=== PATIENT | female | born 1975 | race Caucasian/White ===

== ENCOUNTER 2019-09-02 08:15 | Emergency (ER) | payer OTHER ==
[~2019-09-02] VITALS: Ht 154.9 cm; Wt 104.1 kg
[2019-09-02] MEDS ORDERED: LIPI10TA PO (08:21)
[2019-09-02] MEDS ORDERED: ZOLO100T PO (08:21)
[2019-09-02] MEDS ORDERED: MOBI4TAB PO (08:21)
[2019-09-02] MEDS ORDERED: PEPC1TAB5 PO (08:21)
[2019-09-02] MEDS ORDERED: MIRE1IUD IU (08:23)
[2019-09-02] MEDS ORDERED: PHENAZOPYRIDINE 100 MG TAB PO ONE (09:15)
[2019-09-02] MEDS ORDERED: BACT800T5 PO ×2 (10:13→10:36)
[2019-09-02] MEDS ORDERED: PYRI1TAB5 PO ×2 (10:19→10:36)
[2019-09-02 10:30] VITALS: BP 126/77
== END 2019-09-02 10:37 | disposition home or self-care (01) ==
LOC: M ED 08:15
DX: N39.0 Urinary tract infection, site not specified (principal); Z87.442 Personal history of urinary calculi; Z79.84 Long term (current) use of oral hypoglycemic drugs; Z79.899 Other long term (current) drug therapy

== ENCOUNTER → 2019-12-02 | Outpatient (REF) | payer OTHER ==
[~2019-12-02] MED LIST: BACT800T5 PO; LIPI10TA PO; MIRE1IUD IU; MOBI4TAB PO; PEPC1TAB5 PO; PYRI1TAB5 PO; ZOLO100T PO
== END ==
LOC: M SFHCLERA 16:20
PROVIDERS: ATTEND Nurse Practitioner Family
DX: R30.0 Dysuria (principal)
CPT/HCPCS: 81002; 87088; 87186; G0463

== ENCOUNTER → 2019-12-12 | Outpatient (REF) | payer OTHER | LOC: M SFHCLERA 16:39 | PROVIDERS: ATTEND Physician Assistant | DX: R30.0 Dysuria (principal) | CPT/HCPCS: 81002; 81025; 87088; 87186; G0463 ==

== ENCOUNTER 2020-01-27 01:25 | Inpatient (IN) | payer OTHER ==
[2020-01-27] VITALS (7 sets, daily range): BP systolic 130–160; BP diastolic 84–93; O2SAT 90
[~2020-01-27] VITALS: Ht 154.9 cm; Wt 105.9 kg
[2020-01-27] MEDS ORDERED: NS 1,000 ML IV ONE ×3 (02:00→07:45)
[2020-01-27] MEDS ORDERED: ONDANSETRON 4MG/2ML VIAL IV ONE (02:00)
[2020-01-27] MEDS ORDERED: MORPHINE 4 MG/ML 1ML VIAL/SYRINGE (J2270) IV ONE ×2 (02:00→06:45)
[2020-01-27 02:24] LABS: BASO # 0.1 10^3/uL (0.0-0.2); BASO % 0.4 % (0.0-1.0); BILIRUBIN, URINE MANUAL OBSCURED (NEGATIVE); EOS # 0.2 10^3/uL (0.0-0.5); EOS % 1.7 % (0.0-3.0); GLUCOSE, URINE (UA) MANUAL OBSCURED mg/dL (NEGATIVE); HEMATOCRIT 43.9 % (36.0-47.0); HEMOGLOBIN 13.8 g/dl (12.0-15.5); KETONE, URINE MANUAL OBSCURED mg/dL (NEGATIVE); LYMPH # 2.3 10^3/uL (1.5-5.0); LYMPH % 16.3 % (24.0-44.0); MEAN CORPUSCULAR HEMOGLOBIN 29.2 pg (27.0-33.0); MEAN CORPUSCULAR HGB CONC 31.4 g/dl (32.0-36.5); MEAN CORPUSCULAR VOLUME 92.8 fl (80.0-96.0); MONO # 0.9 10^3/uL (0.0-0.8); MONO % 6.5 % (0.0-5.0); NEUTROPHILS # 10.4 10^3/uL (1.5-8.5); NEUTROPHILS % 74.6 % (36.0-66.0); PLATELET COUNT, AUTOMATED 340 10^3/uL (150-450); RED BLOOD COUNT 4.73 10^6/uL (4.00-5.40); UROBILINOGEN, URINE MANUAL OBSCURED mg/dl (NORMAL); WHITE BLOOD COUNT 13.9 10^3/uL (4.0-10.0)
[2020-01-27 02:36] LABS: BACTERIA, URINE SMALL AMOUNT; HYALINE CAST, URINE NONE SEEN /lpf (0-1); SQUAMOUS EPITHELIAL CELL URINE SMALL AMOUNT /hpf (SMALL AMT)
[2020-01-27 03:01] LABS: HCG, SERUM QUALITATIVE NEGATIVE (NEGATIVE)
[2020-01-27 03:02] LABS: ALBUMIN 3.8 GM/DL (3.2-5.2); ALT/SGPT 22 U/L (12-78); BILIRUBIN,DIRECT 0.1 MG/DL (0.0-0.2); BILIRUBIN,TOTAL 0.6 MG/DL (0.2-1.0); BLOOD UREA NITROGEN 14 MG/DL (7-18); CALCIUM LEVEL 8.7 MG/DL (8.5-10.1); CARBON DIOXIDE LEVEL 18 MEQ/L (21-32); CHLORIDE LEVEL 114 MEQ/L (98-107); CREATININE FOR GFR 1.69 MG/DL (0.55-1.30); GLOMERULAR FILTRATION RATE 35.2 (>58); GLUCOSE, FASTING 81 MG/DL (70-100); LIPASE 127 U/L (73-393); POTASSIUM SERUM 3.8 MEQ/L (3.5-5.1); SODIUM LEVEL 140 MEQ/L (136-145)
--- NOTE | 2020-01-27 03:32 | REPVR ---
PROCEDURE INFORMATION: Exam: CT Abdomen And Pelvis Without Contrast Exam date and time: 01/27/2020 2:00 AM Age: 44 years old Clinical indication: Abdominal pain; Flank; Right; Additional info: R flank pain TECHNIQUE: Imaging protocol: Computed tomography of the abdomen and pelvis without contrast. Radiation optimization: All CT scans at this facility use at least one of these dose optimization techniques: automated exposure control; mA and/or kV adjustment per patient size (includes targeted exams where dose is matched to clinical indication); or iterative reconstruction. COMPARISON: No relevant prior studies available. FINDINGS: Liver: Normal. No mass. Gallbladder and bile ducts: Distended gallbladder with subtle adjacent infiltration. Pancreas: Normal. No ductal dilation. Spleen: Normal. No splenomegaly. Adrenals: Normal. No mass. Kidneys and ureters: [id number] left-sided hydroureteronephrosis secondary to 5 mm by 4 mm calculus at the left UVJ. There is right renal cortical scarring. Stomach and bowel: There is gastric postoperative change. Appendix: No evidence of appendicitis. Intraperitoneal space: Unremarkable. No free air. No significant fluid collection. Vasculature: Unremarkable. No abdominal aortic aneurysm. Lymph nodes: Unremarkable. No enlarged lymph nodes. Bladder: Unremarkable as visualized. Reproductive: IUD within the uterus. Bones/joints: There are lumbar spine degenerative changes greatest at L5-S1. Soft tissues: Unremarkable. IMPRESSION: 1. Zhfp-ja-[id number] left-sided hydroureteronephrosis secondary to 5 mm by 4 mm calculus at the left UVJ. 2. Distended gallbladder with subtle adjacent infiltration, ultrasound as clinically warranted. Electronically signed by: Saud Guzman On 01/27/2020 03:31:59 AM
[2020-01-27 04:02] LABS: ABG BASE EXCESS -9.1 (-2.0-2.0); ABG HCO3 16.4 MEQ/L (22.0-26.0); ABG O2 SATURATION 98.1 % (95.0-99.0); ABG PARTIAL PRESSURE CO2 34.4 mmHg (35.0-45.0); ABG PARTIAL PRESSURE O2 126.7 mmHg (75.0-100.0); ABG STANDARD HCO3 17.2 MEQ/L (22.0-26.0); ABG TOTAL CO2 17.5 MEQ/L (22.0-29.0); ABG pH (ARTERIAL) 7.296 UNITS (7.350-7.450)
[2020-01-27] MEDS ORDERED: AZO-95TA3 PO (04:36)
[2020-01-27] MEDS ORDERED: PHENAZOPYRIDINE 100 MG TAB PO ONE ×2 (04:45→18:15)
--- NOTE | 2020-01-27 05:01 | REPVR ---
PROCEDURE INFORMATION: Exam: CT Chest Without Contrast Exam date and time: 01/27/2020 4:35 AM Age: 44 years old Clinical indication: Other: Hypoxia TECHNIQUE: Imaging protocol: Computed tomography of the chest without contrast. 3D rendering: MIP and/or 3D reconstructed images were created by the technologist. Radiation optimization: All CT scans at this facility use at least one of these dose optimization techniques: automated exposure control; mA and/or kV adjustment per patient size (includes targeted exams where dose is matched to clinical indication); or iterative reconstruction. COMPARISON: No relevant prior studies available. FINDINGS: Lungs: Unremarkable. No consolidation. No masses. Pleural space: Unremarkable. No pneumothorax. No pleural effusion. Heart: Unremarkable. No cardiomegaly. No pericardial effusion. Aorta: Unremarkable. No aortic aneurysm. Lymph nodes: Unremarkable. No enlarged lymph nodes. Bones/joints: Unremarkable. No acute fracture. Soft tissues: Unremarkable. IMPRESSION: No acute findings. Electronically signed by: Saud Guzman On 01/27/2020 05:00:32 AM
[2020-01-27 05:31] LABS: CK-MB VALUE MASS 1.5 NG/ML (<3.6); CPK CREATINE PHOSPHOKINASE 84 U/L (26-192); MB/CK RELATIVE INDEX 1.79 (< OR =4); TROPONIN I < 0.02 NG/ML (< 0.10)
[2020-01-27 06:02] LABS: VENOUS BASE EXCESS -11.5 (-2.0-2.0); VENOUS HCO3 16.2 MEQ/L (23.0-27.0); VENOUS O2 SATURATION 94.3 % (60.0-80.0); VENOUS PARTIAL PRESSURE CO2 43.4 mmHg (38.0-50.0); VENOUS PARTIAL PRESSURE O2 84.4 mmHg (30.0-50.0); VENOUS PH 7.191 UNITS (7.330-7.430); VENOUS STANDARD HCO3 15.4 MEQ/L; VENOUS TOTAL CO2 17.6 MEQ/L (24.0-28.0)
[2020-01-27] MEDS ORDERED: NS 1,000 ML IV SCH ×2 (06:07→08:00)
[2020-01-27 06:25] LABS: SALICYLATE LEVEL < 1.7 MG/DL (5.0-30.0)
[2020-01-27] MEDS ORDERED: HYDROMORPHONE HCL 0.5 MG/ 0.5 ML SYRINGE (J1170 PER 1) As Ordered ONE (07:05)
[2020-01-27] MEDS ORDERED: HYDROMORPHONE HCL 0.5 MG/ 0.5 ML SYRINGE (J1170 PER 1) IV ONE ×2 (07:15→08:45)
[2020-01-27] MEDS ORDERED: HYDROmorphone HCL 2 MG/ML 1ML VIAL (J1170) IV PRN (08:00)
[2020-01-27] MEDS ORDERED: HYDROMORPHONE HCL 0.5 MG/ 0.5 ML SYRINGE (J1170 PER 1) IV PRN ×6 (08:00→21:15)
--- NOTE | 2020-01-27 08:11 | ECGEPIP ---
[facility] - ED Test Date: 2020-01-27 Pat Name: IMANI DINH Department: Room: - Gender: Female [employer] Sorter: ALFONZO : 1975 Requested By: GAYLE Metcalf Order Number: [id number] Reading MD: Ramo Richey Measurements Intervals [place] Rate: 98 P: 56 PA: 150 QRS: 58 QRSD: 97 T: 28 QT: 384 QTc: 492 Interpretive Statements SINUS RHYTHM NO PRIORS FOR COMPARISON Electronically Signed on 01-27-2020 8:11:05 EDT by Ramo Richey
--- NOTE | 2020-01-27 08:57 | REP ---
Chest x-ray: Two views. History: Hypoxia. No comparison chest x-ray. Findings: Monitoring electrodes are seen overlying the chest. Lungs are well inflated and clear. The pleural angles are sharp. Heart size is normal. Pulmonary vasculature is not increased. There are mild degenerative changes in the thoracic spine. No acute bony abnormality is seen. Impression: No active disease. Electronically Signed by Greg Clayton MD 01/27/2020 08:49 A
[2020-01-27] MEDS: ONDANSETRON 4MG/2ML VIAL IV PRN ×5 (09:15→22:02)
--- NOTE | 2020-01-27 11:18 | REP ---
RIGHT UPPER QUADRANT ULTRASOUND: Real-time sonographic evaluation of the right upper quadrant performed. Gallbladder is moderately distended and contains gallstones. There is no gallbladder wall thickening or pericholecystic fluid. There is no intrahepatic or extrahepatic biliary dilatation, common bile duct measuring 3 mm. Liver demonstrates no mass. Pancreas is not optimally seen due to overlying bowel gas but demonstrates no gross abnormality. Right kidney demonstrates no hydronephrosis with normal size 12 cm in length. IMPRESSION: Moderately distended gallbladder containing gallstones. No gallbladder wall thickening or pericholecystic fluid or biliary dilatation. Electronically Signed by Zion Person MD 01/27/2020 12:20 P
--- NOTE | 2020-01-27 12:04 | REP ---
V/Q SCAN: Following the intravenous administration of 5.4 mCi technetium 99m tagged MAA and the inhalation of 1 mCi technetium 99m DTPA aerosol, multiple images of the lungs are obtained in various projections. No significant perfusion defect is seen bilaterally. There are no areas of V/Q mismatch. There is no scintigraphic evidence of pulmonary embolism. IMPRESSION: No scintigraphic evidence of pulmonary embolism. Electronically Signed by Zion Person MD 01/27/2020 12:22 P
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
[2020-01-27] MEDS: LACTOBACILLUS ACIDOPHILUS CAP (BACID) PO SCH ×2 (13:10→18:20)
[2020-01-27] MEDS: SERTRALINE 100 MG TAB PO SCH (13:11)
[2020-01-27] MEDS: FAMOTIDINE 20 MG TAB PO SCH (13:11)
[2020-01-27] MEDS: cefTRIAXone SOD 2 GM in D5W MINI-BAG PLUS 50 ML IV SCH (13:12)
[2020-01-27] MEDS ORDERED: NS 2,000 ML IV ONE (13:45)
[2020-01-27 14:38] LABS: CALCIUM LEVEL 7.5 MG/DL (8.5-10.1); CREATININE FOR GFR 2.7 MG/DL (0.55-1.30); GLOMERULAR FILTRATION RATE 20.5 (>58); POTASSIUM SERUM 4.1 MEQ/L (3.5-5.1)
[2020-01-27] MEDS: HYDROMORPHONE HCL 0.5 MG/ 0.5 ML SYRINGE (J1170 PER 1) IV PRN (18:21)
--- NOTE | 2020-01-27 19:08 | IPNPDOC ---
Date Seen The patient was seen on 01/27/20. Progress Note Medical clearance: Acute Kidney Injury with Metabolic Acidosis due to Obstructing stone. -pt is medically optimized. She has no history of CAD, KS, CHF, and has no acute cardiac ischemic symptoms. She has been worked up for possible PE due to hypoxia and tachycardia, but had a negative VQ scan. CT chest reviewed by community nurse Dr. Srinivasan earlier this morning, and suggested incentive spirometry for atelectasis, and possible undiagnosed KIM or Obesity hypoventilation syndrome. -NPO. Dr. Malhotra to do ureteroscopy with lithotripsy stent. IVFluids. Tillman. -Pt gives consent. VS, I&O, 24H, Fishbone Vital Signs/I&O Vital Signs Date Time Temp Pulse Resp B/P (MAP) Pulse Ox O2 Delivery O2 Flow Rate FiO2 01/27/20 18:31 21 01/27/20 14:00 98.7 87 160/90 (113) 100 Room Air Laboratory Data 24H LABS Laboratory Tests 2 01/27/20 02:12: Immature Granulocyte % (Auto) 0.5, Neutrophils (%) (Auto) 74.6H, Lymphocytes (%) (Auto) 16.3L, Monocytes (%) (Auto) 6.5H, Eosinophils (%) (Auto) 1.7, Basophils (%) (Auto) 0.4, Neutrophils # (Auto) 10.4H, Lymphocytes # (Auto) 2.3, Monocytes # (Auto) 0.9H, Eosinophils # (Auto) 0.2, Basophils # (Auto) 0.1, Nucleated Red Blood Cells % (auto) 0.1H, Urine Color (ROHINI) ORANGEH, Urine Appearance (ROHINI) TURBIDH, Urine pH (ROHINI) OBSCUREDH, Urine Specific [place] (ROHINI) 1.020, Bedside Urine Glucose (UA) OBSCUREDH, Bedside Urine Ketones (LAB) OBSCUREDH, Bedside Urine Blood POSITIVEH, Bedside Urine Nitrite (LAB) OBSCUREDH, Bedside Urine Bili hurtado (LAB) OBSCUREDH, Bedside Urine Urobilinogen (LAB) OBSCUREDH, Bedside Urine Leukocyte Esterase (L OBSCUREDH, Urine Sediment Examination PERFORMED, Urine RBC 3-5H, Urine WBC 3-5H, Urine Squamous Epithelial Cells SMALL AMOUNT, Urine Bacteria SMALL AMOUNTH, Urine Hyaline Casts NONE SEEN, Anion Gap 8, Glomerular Filtration Rate 35.2L, Calcium Level 8.7, Total Bilirubin 0.6, Direct Bilirubin 0.1, Aspartate Amino Transf (AST/SGOT) 18, Alanine Aminotransferase (ALT/SGPT) 22, Alkaline Phosphatase 74, Total Creatine Kinase 84, Creatine Kinase MB 1.5, Creatine Kinase MB Relative Index 1.79, Troponin I < 0.02, Total Protein 7.0, Albumin 3.8, Albumin/Globulin Ratio 1.2, Lipase 127, Human Chorionic Gonadotropin, Qual NEGATIVE, Salicylates Level < 1.7L 01/27/20 03:52: Blood Gas Bicarbonate Standard 17.2L, Arterial Blood pH 7.296L, Arterial Blood Partial Pressure CO2 34.4L, Arterial Blood Partial Pressure O2 126.7H, Arterial Blood Total CO2 17.5L, Arterial Blood HCO3 16.4L, Arterial Blood Base Excess - 9.1L, Arterial Blood Oxygen Saturation 98.1 01/27/20 05:42: Blood Gas Bicarbonate Standard 15.4, Venous Blood pH 7.191L, Venous Blood Partial Pressure CO2 43.4, Venous Blood Partial Pressure O2 84.4H, Venous Blood Total Carbon Dioxide 17.6L, Venous Blood HCO3 16.2L, Venous Blood Oxygen Saturation 94.3H, Venous Blood Base Excess -11.5L 01/27/20 06:14: Lactic Acid Level 0.7 01/27/20 13:53: Anion Gap 10, Glomerular Filtration Rate 20.5L, Calcium Level 7.5L CBC/BMP Laboratory Tests 01/27/20 02:12 01/27/20 13:53 Microbiology Microbiology 01/27/20 Urine Culture, Received Pending JANNETTE ATKINS MD January 27, 2020 19:08
[2020-01-27] MEDS ORDERED: ISOVUE-300 61% 50ML VIAL As Ordered ONE (19:35)
[2020-01-27] MEDS ORDERED: MIDAZOLAM INJ 2MG/2ML VIAL (J2250 PER 1MG) As Ordered ONE (19:47)
[2020-01-27] MEDS ORDERED: LIDOCAINE 2% 100MG/5ML SDV (FOR ANES.) As Ordered ONE (19:59)
[2020-01-27] MEDS ORDERED: BUPIVACAINE/DEXTROSE 0.75% 2 ML AMP As Ordered ONE (19:59)
[2020-01-27] MEDS ORDERED: propofoL 200 MG/20 ML VIAL As Ordered ONE (19:59)
[2020-01-27] MEDS ORDERED: fentaNYL 100 MCG/2 ML INJECTION (J3010) As Ordered ONE (20:03)
--- NOTE | 2020-01-27 20:29 | SMCUROLCON ---
Urology Consultation General Date of Consultation 01/27/20 Reason For Consultation This patient is seen for Acute Kidney Injury,Metabolic Acidosis,Ureterolith. History of Present Illness This is a 44 y/o F w/ a PMH significant for kidney stones (had an ESWL in the past), HL, and GERD, admitted to the hospital earlier today for TANYA 2/2 an obstructing 5mm L UVJ stone. The patient notes that she was having urinary frequency, dysuria, and L flank pain, as well as n/v prior to coming to the hospital. She notes that she has continued to have nausea and vomiting since admission as well as dysuria and flank pain. Her Cr on admission was 1.6 (baseline unknown), and when rechecked this afternoon, it went up to 2.7. Past Medical History Medical History see HPI Surgical Hstory ESWL Gastric bypass Back surgery x2 Medications Current Medications Current Medications Medications (Trade) Dose Ordered Sig/[place] Route PRN Reason Start Time Stop Time Status Last Admin Dose Admin Atorvastatin Calcium (Lipitor) 10 mg QHS PO 01/27/20 21:00 Ceftriaxone Sodium 2 gm/ Dextrose 50 ml @ 100 mls/hr Q24H IV 01/27/20 08:00 01/27/20 13:12 Famotidine (Pepcid) 20 mg DAILY PO 01/27/20 09:00 01/27/20 13:11 Home Med (Med Rec Complete!) ASDIRECTED XX 01/27/20 06:30 01/27/20 06:45 DC Hydromorphone HCl (Dilaudid) 0.2 mg Q3HP PRN IV MILD PAIN (PS 1-4) 01/27/20 08:00 01/27/20 08:32 DC Hydromorphone HCl (Dilaudid) 0.2 mg Q3HP PRN IV MILD PAIN (PS 1-4) 01/27/20 08:45 Hydromorphone HCl (Dilaudid) 0.4 mg Q3HP PRN IV MODERATE PAIN (PS 5-7) 01/27/20 08:00 01/27/20 08:32 DC Hydromorphone HCl (Dilaudid) 0.4 mg Q3HP PRN IV MODERATE PAIN (PS 5-7) 01/27/20 08:45 01/27/20 18:21 Hydromorphone HCl (Dilaudid) 0.5 mg Q3HP PRN IV MILD PAIN (PS 1-4) 01/27/20 08:00 01/27/20 08:32 DC Hydromorphone HCl (Dilaudid) 0.8 mg Q3HP PRN IV MODERATE/SEVERE PAIN (PS 5-10) 01/27/20 08:00 01/27/20 08:32 DC Hydromorphone HCl (Dilaudid) 1 mg Q3HP PRN IV MILD PAIN (PS 1-4) 01/27/20 08:00 01/27/20 08:32 DC Hydromorphone HCl (Dilaudid) 1.6 mg Q3HP PRN IV MODERATE/SEVERE PAIN (PS 5-10) 01/27/20 08:00 01/27/20 08:32 DC Lactobacillus Acidophilus (Bacid) 1 ea BIDWM PO 01/27/20 08:00 01/27/20 18:20 Ondansetron HCl (ZOFRAN INJection) 4 mg Q4HP PRN IV NAUSEA OR VOMITING 01/27/20 09:15 01/27/20 18:21 Sertraline HCl (Zoloft) 200 mg DAILY PO 01/27/20 09:00 01/27/20 13:11 Sodium Chloride 1,000 ml @ 150 mls/hr Q6H40M IV 01/27/20 06:07 01/27/20 07:56 DC 01/27/20 06:31 Sodium Chloride 1,000 ml @ 150 mls/hr Q6H40M IV 01/27/20 08:00 01/27/20 13:40 DC 01/27/20 08:12 Allergies Allergies: Coded Allergies: No Known Drug Allergies (Verified Allergy, Unknown, 09/02/19) Review of Systems Constitutional: Denies: Fever, Chills, Sweats, Weakness, Malaise Skin: Denies: Rash, Lesions, Breakdown, Nail Changes Pulmonary: Denies: Dyspnea, Cough Cardiovascular: Denies Chest Pain, Denies Palpitations Gastrointestinal: Reports: Nausea, Vomiting Genitourinary: Reports: Dysuria Musculoskeletal: Reports: Back Pain (left flank pain) Psych: Reports: Mood Normal; Denies: Anxiety, Depression Physical Examination General Exam: Alert, Cooperative, No Acute Distress Chest Exam: Normal air movement Heart Exam: Regular Rhythm Abdomen Exam: Soft Skin Exam: Nl turgor and temperature Neuro Exam: Normal Speech Psych Exam: Mental status NL, Mood NL Vital Signs/I&O Vital Signs Date Time Temp Pulse Resp B/P (MAP) Pulse Ox O2 Delivery O2 Flow Rate FiO2 01/27/20 18:31 21 01/27/20 14:00 98.7 87 160/90 (113) 100 Room Air Laboratory Data 24H Labs Laboratory Tests 2 01/27/20 02:12: Immature Granulocyte % (Auto) 0.5, Neutrophils (%) (Auto) 74.6H, Lymphocytes (%) (Auto) 16.3L, Monocytes (%) (Auto) 6.5H, Eosinophils (%) (Auto) 1.7, Basophils (%) (Auto) 0.4, Neutrophils # (Auto) 10.4H, Lymphocytes # (Auto) 2.3, Monocytes # (Auto) 0.9H, Eosinophils # (Auto) 0.2, Basophils # (Auto) 0.1, Nucleated Red Blood Cells % (auto) 0.1H, Urine Color (ROHINI) ORANGEH, Urine Appearance (ROHINI) TURBIDH, Urine pH (ROHINI) OBSCUREDH, Urine Specific [place] (ROHINI) 1.020, Bedside Urine Glucose (UA) OBSCUREDH, Bedside Urine Ketones (LAB) OBSCUREDH, Bedside Urine Blood POSITIVEH, Bedside Urine Nitrite (LAB) OBSCUREDH, Bedside Urine Bilirubin (LAB) OBSCUREDH, Bedside Urine Urobilinogen (LAB) OBSCUREDH, Bedside Urine Leukocyte Esterase (L OBSCUREDH, Urine Sediment Examination PERFORMED, Urine RBC 3-5H, Urine WBC 3-5H, Urine Squamous Epithelial Cells SMALL AMOUNT, Urine Bacteria SMALL AMOUNTH, Urine Hyaline Casts NONE SEEN, Anion Gap 8, Glomerular Filtration Rate 35.2L, Calcium Level 8.7, Total Bilirubin 0.6, Direct Bilirubin 0.1, Aspartate Amino Transf (AST/SGOT) 18, Alanine Aminotransferase (ALT/SGPT) 22, Alkaline Phosphatase 74, Total Creatine Kinase 84, Creatine Kinase MB 1.5, Creatine Kinase MB Relative Index 1.79, Troponin I < 0.02, Total Protein 7.0, Albumin 3.8, Albumin/Globulin Ratio 1.2, Lipase 127, Human Chorionic Gonadotropin, Qual NEGATIVE, Salicylates Level < 1.7L 01/27/20 03:52: Blood Gas Bicarbonate Standard 17.2L, Arterial Blood pH 7.296L, Arterial Blood Partial Pressure CO2 34.4L, Arterial Blood Partial Pressure O2 126.7H, Arterial Blood Total CO2 17.5L, Arterial Blood HCO3 16.4L, Arterial Blood Base Excess - 9.1L, Arterial Blood Oxygen Saturation 98.1 01/27/20 05:42: Blood Gas Bicarbonate Standard 15.4, Venous Blood pH 7.191L, Venous Blood Partia l Pressure CO2 43.4, Venous Blood Partial Pressure O2 84.4H, Venous Blood Total Carbon Dioxide 17.6L, Venous Blood HCO3 16.2L, Venous Blood Oxygen Saturation 94.3H, Venous Blood Base Excess -11.5L 01/27/20 06:14: Lactic Acid Level 0.7 01/27/20 13:53: Anion Gap 10, Glomerular Filtration Rate 20.5L, Calcium Level 7.5L CBC/BMP Laboratory Tests 01/27/20 02:12 01/27/20 13:53 Microbiology Microbiology 01/27/20 Urine Culture, Received Pending Assessment This is a 44 y/o F w/ TANYA 2/2 an obstructing 5mm L UVJ stone. Her Cr continues to rise and her pain and nausea have not improved. Her UA appears negative for infection. I recommend that we take her to the OR now for cystoscopy, L ureteroscopy w/ laser lithotripsy, and L ureteral stent placement. After a discussion of the risks and benefits of the procedure, informed consent was signed. Plan - plan for OR now - 2g rocephin given at 1pm - NPO - patient may resume regular diet postop ARPITA WATERS MD January 27, 2020 20:29
[2020-01-27] MEDS ORDERED: oxyCODONE 5MG TAB PO PRN (21:15)
[2020-01-27] MEDS ORDERED: fentaNYL 100 MCG/2 ML INJECTION (J3010) IV PRN (21:15)
[2020-01-27] MEDS ORDERED: LR 1,000 ML IV SCH (21:15)
[2020-01-27] MEDS ORDERED: ONDANSETRON 4MG/2ML VIAL As Ordered ONE (21:38)
[2020-01-27] MEDS: ATORVASTATIN 10 MG TAB PO SCH (23:41)
[2020-01-28] VITALS (8 sets, daily range): BP systolic 135–158; BP diastolic 70–95
[2020-01-28] MEDS: ONDANSETRON 4MG/2ML VIAL IV PRN ×3 (02:32→17:36)
[2020-01-28] MEDS: HYDROMORPHONE HCL 0.5 MG/ 0.5 ML SYRINGE (J1170 PER 1) IV PRN ×4 (02:38→23:02)
--- NOTE | 2020-01-28 06:42 | REP ---
Clinical: Ureteral stent placement. Technique: Intraoperative fluoroscopic imaging. Findings: Final image demonstrates a left ureteral stent in satisfactory position. Total fluoroscopic time 10 seconds. Impression: Satisfactory left ureteral stent placement. Electronically Signed by Prince Talbert MD 01/28/2020 06:33 A
[2020-01-28 06:49] LABS: BASO % 0.4 % (0.0-1.0); EOS # 0.2 10^3/uL (0.0-0.5); EOS % 2.5 % (0.0-3.0); HEMATOCRIT 36.7 % (36.0-47.0); LYMPH # 1.4 10^3/uL (1.5-5.0); LYMPH % 17.4 % (24.0-44.0); MEAN CORPUSCULAR HEMOGLOBIN 30.1 pg (27.0-33.0); MEAN CORPUSCULAR VOLUME 100.3 fl (80.0-96.0); MONO # 0.6 10^3/uL (0.0-0.8); MONO % 7.5 % (0.0-5.0); NEUTROPHILS # 5.9 10^3/uL (1.5-8.5); NEUTROPHILS % 71.5 % (36.0-66.0); PLATELET COUNT, AUTOMATED 237 10^3/uL (150-450); RED BLOOD COUNT 3.66 10^6/uL (4.00-5.40); WHITE BLOOD COUNT 8.3 10^3/uL (4.0-10.0)
[2020-01-28 07:11] LABS: HEMOGLOBIN A1c 4.1 %
[2020-01-28 07:41] LABS: CALCIUM LEVEL 7.6 MG/DL (8.5-10.1); CHOLESTEROL RISK RATIO 5.333 (<5); CREATININE FOR GFR 4.08 MG/DL (0.55-1.30); GLOMERULAR FILTRATION RATE 12.7 (>58); POTASSIUM SERUM 5.3 MEQ/L (3.5-5.1); THYROID STIMULATING HORMONE 1.68 uIU/ML (0.358-3.740)
[2020-01-28] MEDS: LACTOBACILLUS ACIDOPHILUS CAP (BACID) PO SCH ×2 (08:28→16:54)
[2020-01-28] MEDS: SERTRALINE 100 MG TAB PO SCH (08:28)
[2020-01-28] MEDS: cefTRIAXone SOD 2 GM in D5W MINI-BAG PLUS 50 ML IV SCH (08:28)
[2020-01-28] MEDS: FAMOTIDINE 20 MG TAB PO SCH (08:31)
[2020-01-28] MEDS: oxyBUTYnin 5 MG TAB PO PRN ×2 (10:20→21:55)
[2020-01-28] MEDS: SODIUM BICARBONATE 75 MEQ in NS 0.45% 1,000 ML IV SCH ×2 (12:34→21:54)
--- NOTE | 2020-01-28 14:07 | IPNPDOC ---
Subjective Review oF Systems Chief Complaint The patient is a 44-year-old female admitted with a reason for visit of Acute Kidney Injury,Metabolic Acidosis,Ureterolith. Events since Last Encounter Patient noted L flank pain earlier, which has improved. Denies n/v. No f/c/ns. Objective Physical Examination General Exam: Alert, Cooperative, No Acute Distress ABDOMEN EXAM: Soft; No: Tenderness Skin Exam: Nl turgor and temperature Neuro Exam: Normal Speech Psych Exam: Mental status NL, Mood NL Other physical findings catheter draining maria victoria colored urine Vital Signs/I&O Vital Signs Date Time Temp Pulse Resp B/P (MAP) Pulse Ox O2 Delivery O2 Flow Rate FiO2 01/28/20 12:46 99 18 89 Nasal Cannula 3.0 01/28/20 10:00 98.9 158/82 (107) I&O- Last 24 Hours up to 6 AM 01/28/20 06:00 Intake Total 1765 ml Output Total 755 ml Balance 1010 ml Laboratory Data Labs 24H Laboratory Tests 2 01/28/20 06:08: Immature Granulocyte % (Auto) 0.7, Neutrophils (%) (Auto) 71.5H, Lymphocytes (%) (Auto) 17.4L, Monocytes (%) (Auto) 7.5H, Eosinophils (%) (Auto) 2.5, Basophils (%) (Auto) 0.4, Neutrophils # (Auto) 5.9, Lymphocytes # (Auto) 1.4L, Monocytes # (Auto) 0.6, Eosinophils # (Auto) 0.2, Basophils # (Auto) 0.0, Nucleated Red Blood Cells % (auto) 0.0, Anion Gap 11, Glomerular Filtration Rate 12.7L, Estimated Mean Plasma Glucose 71, Hemoglobin A1c 4.1, Calcium Level 7.6L, Triglycerides Level 122, Total Cholesterol 192, LDL Cholesterol 132H, Non-HDL Cholesterol (LDL + VLDL) 156, Total HDL Cholesterol 36L, Cholesterol/HDL Ratio 5.333H, Thyroid Stimulating Hormone (TSH) 1.680 CBC/BMP Laboratory Tests 01/28/20 06:08 Microbiology Microbiology 01/27/20 Urine Culture - Final, Complete Assessment/Plan Date Seen The patient was seen on 01/28/20. Patient Summary This is a 44 y/o F w/ TANYA 2/2 an obstructing 5mm L UVJ stone, POD1 s/p cysto, L ureteroscopy, L ureteral stent placement. The patient's stone had already passed by the time of surgery yesterday evening. A stent was placed as she still had significant ureteral edema at the L UVJ. Despite stent placement her Cr went up to 4.1 this morning. Plan/VTE VTE Prophylaxis Ordered?: Yes VTE Exclusion Mechanical Proph: N/A:VTE Prophy Ordered Plan - keep catheter to gravity drainage to help track UOP given worsening Cr - if Cr is improving by tomorrow, the catheter can be removed - oxybutynin 5mg PO q8hrs prn bladder spasms - further management of TANYA per hospitalist service and nephrology - will arrange outpt f/u for cystoscopy and stent removal in a few wks ARPITA WATERS MD January 28, 2020 14:06
--- NOTE | 2020-01-28 15:10 | REP ---
PORTABLE CHEST X-RAY: Single view. HISTORY: Hypoxia. Status post 4 liters of intravenous fluid, rule out effusion. Comparison chest x-ray January 27, 2020. FINDINGS: Monitoring electrode is visible over the left chest. The lungs are well inflated and free of infiltrate. There is no evidence of pleural effusion or pulmonary edema. Pulmonary vasculature is slightly cephalized. There is plate-like atelectasis in the left base behind the heart. This is mild. No infiltrate is seen. IMPRESSION: Cephalization of the pulmonary vasculature. Plate-like atelectasis left base behind the heart. Otherwise no active disease. Electronically Signed by Greg Clayton MD 01/28/2020 04:14 P
[2020-01-28] MEDS: PHENAZOPYRIDINE 100 MG TAB PO SCH ×2 (15:47→21:55)
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
[2020-01-28] MEDS: ATORVASTATIN 10 MG TAB PO SCH (21:55)
[2020-01-29 02:00] VITALS: BP 122/80
[2020-01-29] MEDS: HYDROMORPHONE HCL 0.5 MG/ 0.5 ML SYRINGE (J1170 PER 1) IV PRN (04:02)
[2020-01-29 06:00] VITALS: BP 125/72
[2020-01-29 06:10] LABS: BASO % 0.4 % (0.0-1.0); EOS # 0.2 10^3/uL (0.0-0.5); EOS % 2.1 % (0.0-3.0); HEMATOCRIT 33.7 % (36.0-47.0); HEMOGLOBIN 10.2 g/dl (12.0-15.5); LYMPH # 1.3 10^3/uL (1.5-5.0); LYMPH % 16.4 % (24.0-44.0); MEAN CORPUSCULAR HEMOGLOBIN 29.9 pg (27.0-33.0); MEAN CORPUSCULAR HGB CONC 30.3 g/dl (32.0-36.5); MEAN CORPUSCULAR VOLUME 98.8 fl (80.0-96.0); MONO # 0.6 10^3/uL (0.0-0.8); NEUTROPHILS # 5.8 10^3/uL (1.5-8.5); NEUTROPHILS % 72.5 % (36.0-66.0); PLATELET COUNT, AUTOMATED 245 10^3/uL (150-450); RED BLOOD COUNT 3.41 10^6/uL (4.00-5.40)
[2020-01-29 06:30] LABS: CALCIUM LEVEL 7.7 MG/DL (8.5-10.1); CREATININE FOR GFR 6.01 MG/DL (0.55-1.30); GLOMERULAR FILTRATION RATE 8.1 (>58); POTASSIUM SERUM 4.8 MEQ/L (3.5-5.1)
[2020-01-29] MEDS: FAMOTIDINE 20 MG TAB PO SCH (08:06)
[2020-01-29] MEDS: cefTRIAXone SOD 2 GM in D5W MINI-BAG PLUS 50 ML IV SCH (08:06)
[2020-01-29] MEDS: LACTOBACILLUS ACIDOPHILUS CAP (BACID) PO SCH ×2 (08:06→16:22)
[2020-01-29] MEDS: SERTRALINE 100 MG TAB PO SCH (08:06)
[2020-01-29] MEDS: PHENAZOPYRIDINE 100 MG TAB PO SCH ×3 (08:07→21:07)
[2020-01-29] MEDS: BICITRA 30ML SOLN UDC PO SCH ×3 (09:00→21:07)
[2020-01-29] MEDS ORDERED: PERCOCET 5MG/325MG TAB PO ONE (09:45)
[2020-01-29 10:00] VITALS: BP 128/78
[2020-01-29] MEDS ORDERED: SODIUM BICARBONATE 75 MEQ in NS 0.45% 1,000 ML IV SCH (12:00)
[2020-01-29 14:00] VITALS: BP 122/80
[2020-01-29 14:27] VITALS: O2SAT 89
--- NOTE | 2020-01-29 15:44 | IPNPDOC ---
Date Seen The patient was seen on 01/29/20. Progress Note subjective: still c/o left flank pain 6/10pain scale, but no more dysuria. no fever, chills, n/v/abd pain/ diarrhea. objective: physical examination vitals: pls see below Generally, awake, alert, oriented times three, answering questions appropriately. No conversational dyspnea. Lungs diminished bibasilar crackles. Heart: S1, S2, sinus tachycardia. Abdomen: Is obese, soft, nontender, nondistended. Positive bowel sounds times four quadrants. No abdominal bruit. Left costovertebral angle (CVA) tenderness positive.berg yellow urine Extremities: Trace edema. LABORATORY DATA, MICROBIOLOGY; pls see below CT abdomen and pelvis: Left UVJ stone 5 mm by 4 mm calculus at the left ureterovesical junction, gastric postoperative changes with [id number] left-sided hydroureteronephrosis, distended gallbladder with subtle infiltration, ultrasound as clinically warranted. ASSESSMENT AND PLAN: This is a 44-year-old morbidly obese female, BMI of 42.8, status post gastric bypass surgery, possible obesity hypoventilation syndrome, undiagnosed obstructive sleep apnea, presents with 2-day history of low-grade fever, dysuria, hematuria. [id number]-tyoytaik left-sided hydroureteronephrosis secondary to obstructive kidney stone with acute kidney injury and obstructive uropathy, probable urinary tract infection. s/p cystoscopy ureteroscopy laser lithotripsy and stent placed by Urology Dr. Malhotra. s/p 2grams iv ceftriaxone x 3days, with negative urine culture. now with berg to document strict i/o. Acute kidney injury secondary to obstructed kidney stone with hydronephrosis in the setting of chronic scarred right kidney with impaired compensaton. despite decompression with lithotripsy and stent, pt continued to have decompensated renal function, with worsening creatinine to 6 from admission of 1.6. nephrology consulted and recommended continued iv bicarbonate gtt due to metabolic acidosis. Dr. Mohr does not believe the patient requires any emergent dialysis at this time. Metabolic acidosis secondary to renal failure The patient denies any diarrhea or vomiting. on iv bicarbonate gtt by nephrology Hypoxia, most likely due to obesity hypoventilation with untreated obstructive sleep apnea or atelectasis. CT chest discussed with cloth booker Dr. Srinivasan on admission, who recommended r/o PE w VQ scan which is negative. She recommended incentivespirometry, kept on continuous pulse oximetry, and monitor for hypercarbia. Dueto IV Dilaudid for pain medications, will keep on obstructive sleep apnea (KIM) protocol and oxygen if needed. Keep saturations above 90%. Fluid overload from worsening renal function and ivfluids seen on CXR with increased vascular congestion. will defer fluid mgt to rag cutting machine operator Dr. Mohr. Morbid obesity. BMI of 42.8. The patient has had gastric bypass surgery. She is at risk for KIM, obesity hypoventilation syndrome while she is on Dilaudid. T Reflux. Continue on proton pump inhibitor (PPI). Hypercholesterolemia. statin. Deep venous thrombosis prophylaxis with compression stockings disposition: add tele and monitor ionized calcium due to bicarb gtt. will need 4-5 days more until creatinine plateaus. VS, I&O, 24H, Fishbone Vital Signs/I&O Vital Signs Date Time Temp Pulse Resp B/P (MAP) Pulse Ox O2 Delivery O2 Flow Rate FiO2 01/29/20 14:27 89 Nasal Cannula 3.0 01/29/20 14:00 98.7 104 122/80 (94) 01/29/20 10:13 19 I&O- Last 24 Hours up to 6 AM 01/29/20 06:00 Intake Total 1790 ml Output Total 1350 ml Balance 440 ml Laboratory Data 24H LABS Laboratory Tests 2 01/29/20 05:50: Immature Granulocyte % (Auto) 0.6, Neutrophils (%) (Auto) 72.5H, Lymphocytes (%) (Auto) 16.4L, Monocytes (%) (Auto) 8.0H, Eosinophils (%) (Auto) 2.1, Basophils (%) (Auto) 0.4, Neutrophils # (Auto) 5.8, Lymphocytes # (Auto) 1.3L, Monocytes # (Auto) 0.6, Eosinophils # (Auto) 0.2, Basophils # (Auto) 0.0, Nucleated Red Blood Cells % (auto) 0.0, Anion Gap 14, Glomerular Filtration Rate 8.1L, Calcium Level 7.7L CBC/BMP Laboratory Tests 01/29/20 05:50 Microbiology Microbiology 01/27/20 Urine Culture - Final, Complete JANNETTE ATKINS MD January 29, 2020 15:44
[2020-01-29] MEDS: PERCOCET 5MG/325MG TAB PO PRN ×2 (16:24→21:54)
[2020-01-29] MEDS: ATORVASTATIN 10 MG TAB PO SCH (21:07)
[2020-01-29 22:00] VITALS: BP 148/76
[2020-01-30 02:00] VITALS: BP 150/90
[2020-01-30] MEDS: PERCOCET 5MG/325MG TAB PO PRN ×4 (05:12→21:38)
[2020-01-30 06:00] VITALS: BP_SYST 146; BP_SYST 150; BP_DIAS 88; BP_DIAS 90
[2020-01-30 06:39] LABS: BASO % 0.3 % (0.0-1.0); EOS # 0.3 10^3/uL (0.0-0.5); EOS % 4.3 % (0.0-3.0); HEMATOCRIT 31.9 % (36.0-47.0); HEMOGLOBIN 9.7 g/dl (12.0-15.5); LYMPH # 1.3 10^3/uL (1.5-5.0); LYMPH % 18.8 % (24.0-44.0); MEAN CORPUSCULAR HEMOGLOBIN 29.8 pg (27.0-33.0); MEAN CORPUSCULAR HGB CONC 30.4 g/dl (32.0-36.5); MEAN CORPUSCULAR VOLUME 98.2 fl (80.0-96.0); MONO # 0.6 10^3/uL (0.0-0.8); MONO % 8.9 % (0.0-5.0); NEUTROPHILS # 4.5 10^3/uL (1.5-8.5); NEUTROPHILS % 67.1 % (36.0-66.0); PLATELET COUNT, AUTOMATED 252 10^3/uL (150-450); RED BLOOD COUNT 3.25 10^6/uL (4.00-5.40); WHITE BLOOD COUNT 6.7 10^3/uL (4.0-10.0)
[2020-01-30 07:15] LABS: BLOOD UREA NITROGEN 33 MG/DL (7-18); CALCIUM LEVEL 7.7 MG/DL (8.5-10.1); CARBON DIOXIDE LEVEL 19 MEQ/L (21-32); CHLORIDE LEVEL 111 MEQ/L (98-107); CREATININE FOR GFR 7.48 MG/DL (0.55-1.30); GLOMERULAR FILTRATION RATE 6.3 (>58); GLUCOSE, FASTING 68 MG/DL (70-100); NT-PRO BNP 2340 PG/ML (<125); POTASSIUM SERUM 5.2 MEQ/L (3.5-5.1); SODIUM LEVEL 139 MEQ/L (136-145)
[2020-01-30] MEDS: BICITRA 30ML SOLN UDC PO SCH ×3 (09:14→21:37)
[2020-01-30] MEDS: PHENAZOPYRIDINE 100 MG TAB PO SCH ×3 (09:15→21:37)
[2020-01-30] MEDS: FAMOTIDINE 20 MG TAB PO SCH (09:15)
[2020-01-30] MEDS: LACTOBACILLUS ACIDOPHILUS CAP (BACID) PO SCH ×2 (09:15→17:46)
[2020-01-30] MEDS: SERTRALINE 100 MG TAB PO SCH (09:15)
--- NOTE | 2020-01-30 11:05 | IPN ---
DATE: 01/28/2020 The patient continues to complain of dysuria, Tillman catheter placed. Output overnight was 300 mL despite 3.5 liters of IV fluids given. The patient's creatinine is creased to 4.0, despite lithotripsy and surgical intervention this morning. The patient denied any fever or chills overnight. Describes the pain as 6/10 requesting Pyridium. No other issues per nursing. No nausea or vomiting, diarrhea or shortness of breath despite IV fluids. PHYSICAL EXAMINATION: Temperature 98.9, T-max of 99.2, pulse of 105, respiratory rate 18, blood pressure 152/82, 89 to 91% nasal canula. General: Awake, alert, and oriented to person, place and time. No jugular venous distension (JVD) or thyromegaly. Lungs: Diminished with fine crackles bilateral bases. Heart: S1, S2, sinus tachycardia. Abdomen: Obese, soft, nontender, nondistended. Positive bowel sounds. Positive left costovertebral angle (CVA) tenderness. Extremities: Trace edema. LABORATORY DATA: Reviewed. Notable for a creatinine of 4.08, admission creatinine 1.69, metabolic acidosis of bicarbonate of 17 and potassium of 5.3, white count is normal at 8.3. ASSESSMENT AND PLAN: This is a 44-year-old female admitted on 01/27/2020 with complaint of hematuria and dysuria for two days. She has a history of recurrent nephrolithiasis, urinary tract infections (UTIs), lithotripsy, morbid obesity body mass index (BMI) 41, gastric bypass surgery and probable obstructive sleep apnea, not formally diagnosed, admitted with complaints of low grade fever, found to have a urinary tract infection, moderate hydronephrosis on the left along with ureterolysis. The patient had admission creatinine of 1.69. Despite fluid hydration, the patient's creatinine worsened to 2.7, at which point she was brought to the operating room for a cystoscopy, left ureteroscopy along with stent placement and laser lithotripsy. Despite surgical intervention, the patient remains with severe metabolic acidosis, worsening azotemia. CT of the abdomen shows scarring on the right kidney. Nephrology has been consulted and suggested IV fluid hydration. IMPRESSION: 1. Acute renal failure secondary to left UVJ stone, status post cystoscopy, left uteroscopy stent placement and laser lithotripsy with worsening metabolic acidosis and renal failure despite fluid hydration and surgical intervention. The patient has a known history of recurrent kidney stones and has scarring on the right kidney with a hydronephrosis. The right kidney was unable to compensate and therefore now has issues with worsening azotemia. Oyster Culler, Dr. Mohr has been consulted to help manages the patient's worsening renal dysfunction. Due to the patient's metabolic acidosis along with hyperkalemia, the patient has been changed to bicarbonate drip at 100 mL per hour for the next 4 days into the weekend. At this time, she is also on Ditropan 5 mg three times a day as needed for bladder spasms. Urologist has been consulted, Dr. Malhotra, whose help is greatly appreciated. 2. Recurrent kidney stones, status post cystoscopy, laser lithotripsy and stent placement. Continue to monitor input and output on IV fluids. Urologist for postop management. 3. Metabolic acidosis and hyperkalemia secondary to severe renal failure due to acute kidney injury from obstructive kidney stone, as well as chronic scarring of the right kidney, unable to compensate for the hydronephrosis, now with worsening renal function. Per Dr. Mohr, the patient is to be kept in the hospital for the next four days while she is on bicarbonate drip in order to allow for recovery of the left kidney on top of the chronic scarring of the right kidney. She is still maintained on hydromorphone IV every 3 hours for mild to moderate pain. Urinalysis has been sent. Urine culture was no growth, but antibiotics are continued due to recent cystoscopy and risk for infection. 4. Hypoxia. CT chest obtained, as well as V/Q scan, ruled pulmonary embolism, effusion, pneumonia. The patient has had no COVID-19 exposures; therefore, per pharmaceutical laboratory technician, Dr. Srinivasan, has reviewed her CT chest on admission. The patient most likely will benefit from incentive spirometry and most likely has untreated with obstructive sleep apnea or obesity hyperventilation syndrome. Therefore, obstructive sleep apnea protocol has been instituted in light of use of Dilaudid. 5. Obesity. Body mass index (BMI) of 44. History of gastric bypass surgery some time ago at risk for hypercapnic respiratory failure while on Dilaudid, therefore, she is currently on obstructive sleep apnea protocol. 6. Hypercholesterolemia. Continue on statin. MTDD
[2020-01-30] MEDS: ONDANSETRON 4MG/2ML VIAL IV PRN ×3 (12:58→22:25)
[2020-01-30 18:00] VITALS: O2SAT 94
[2020-01-30 18:15] VITALS: BP 122/65
--- NOTE | 2020-01-30 18:30 | ROOPDOC ---
[facility] Report Of Operation Report of Operation DATE OF PROCEDURE: 01/30/2020 PREPROCEDURE DIAGNOSES: TANYA POSTPROCEDURE DIAGNOSES: TANYA PROCEDURE: Right IJ Dialysis placement Performed by: Marbella Rosario DO Attending: Dr. Daniela MD ANESTHESIA: local ESTIMATED BLOOD LOSS: Approximately 10 mL. COMPLICATIONS: none PROCEDURE NOTE: Consent was obtained prior to the procedure. Indications, risks and benefits were explained to the patient. Procedure was performed at bedside on 4PAV. DESCRIPTION OF PROCEDURE: The patient was placed in the supine position. The right chest region and neck was prepped with chlorhexidine scrub. The patient was draped in the typical sterile fashion using a full drape. Ultrasonography w as employed at bedside. A sterile probe cover was placed over the ultrasound. The medial and lateral head of the sternocleidomastoid were identified, as was the carotid pulse. The internal jugular vein was identified using ultrasound. Anesthesia was achieved over the internal jugular vein on the right using a 1% lidocaine solution. Once anesthetized, an introducer needle was inserted into the internal jugular vein under direct ultrasound visualization. Venous blood was withdrawn, syringe was removed and a guidewire was advanced on to the introducer needle. The guidewire was visualized in the internal jugular vein by ultrasound. A small incision was made in the skin surface with a scalpel, and the introducer needle was exchanged for a dilator over the guidewire. After appropriate dilation was obtained, the dilator was exchanged over the wire for a Dialysis catheter. The wire was removed, and the catheter was sutured in place. A sterile bandage was placed over the catheter site. The patient tolerated the procedure well without any hemodynamic compromise. At the time of procedure completion, all ports were aspirated and flushed properly with heparin. Postprocedure x-ray was performed, which demonstrated adequate positioning of the catheter in the right internal jugular vein. MARBELLA ROSARIO DO January 30, 2020 18:30 NEVAEH GONZALEZ MD Feb 04, 2020 21:47
--- NOTE | 2020-01-30 21:08 | REPVR ---
PROCEDURE INFORMATION: Exam: US Retroperitoneal Limited, Kidneys Exam date and time: 01/30/2020 8:57 PM Age: 44 years old Clinical indication: Other: Con TECHNIQUE: Imaging protocol: Real-time ultrasound of the retroperitoneum with image documentation. Examination was focused on the kidneys. COMPARISON: GALLBLADDER US 01/27/2020 9:53 AM FINDINGS: Right kidney: The right kidney measures 12.2 cm in its cephalocaudad dimension and 5.0 x 5.0 cm in diameter. Focal parenchymal defect in the upper pole. No mass, cyst or hydronephrosis. Left kidney: The left kidney measures 13.1 cm in its cephalocaudad dimension and 5.9 x 4.6 cm in diameter. No mass, cyst or hydronephrosis. Bladder: The urinary bladder is normal. There is a stent at the left posterolateral aspect. IMPRESSION: 1. Focal parenchymal defect or scar in the upper right kidney. 2. Stent in the left posterior aspect of the urinary bladder. 3. Otherwise negative renal sonogram. Electronically signed by: Richie Riddle On 01/30/2020 21:07:53 PM
[2020-01-30] MEDS: ATORVASTATIN 10 MG TAB PO SCH (21:38)
[2020-01-30 22:00] VITALS: BP 140/56
[2020-01-31 06:00] VITALS: BP 148/88
[2020-01-31 06:27] LABS: BASO % 0.5 % (0.0-1.0); EOS # 0.3 10^3/uL (0.0-0.5); EOS % 3.8 % (0.0-3.0); HEMATOCRIT 31.7 % (36.0-47.0); LYMPH # 1.4 10^3/uL (1.5-5.0); LYMPH % 20.9 % (24.0-44.0); MEAN CORPUSCULAR HEMOGLOBIN 30.2 pg (27.0-33.0); MEAN CORPUSCULAR HGB CONC 31.5 g/dl (32.0-36.5); MEAN CORPUSCULAR VOLUME 95.8 fl (80.0-96.0); MONO # 0.6 10^3/uL (0.0-0.8); MONO % 9.2 % (0.0-5.0); NEUTROPHILS # 4.3 10^3/uL (1.5-8.5); NEUTROPHILS % 65.1 % (36.0-66.0); PLATELET COUNT, AUTOMATED 271 10^3/uL (150-450); RED BLOOD COUNT 3.31 10^6/uL (4.00-5.40); WHITE BLOOD COUNT 6.5 10^3/uL (4.0-10.0)
[2020-01-31 06:52] LABS: CALCIUM LEVEL 8.1 MG/DL (8.5-10.1); CREATININE FOR GFR 4.72 MG/DL (0.55-1.30); GLOMERULAR FILTRATION RATE 10.7 (>58)
--- NOTE | 2020-01-31 07:25 | REP ---
CHEST, SINGLE VIEW: Single view of the chest is performed and compared to prior study of 01/28/2020. There is a right jugular central venous catheter. The tip is at the junction of the superior vena cava and right atrium. There is no pneumothorax. Heart is mildly enlarged. There is mild vascular cephalization. Remainder of the study is unchanged. Electronically Signed by Zion Person MD 01/31/2020 09:57 A
[2020-01-31] MEDS: SERTRALINE 100 MG TAB PO SCH (08:31)
[2020-01-31] MEDS: PHENAZOPYRIDINE 100 MG TAB PO SCH ×3 (08:31→20:43)
[2020-01-31] MEDS: LACTOBACILLUS ACIDOPHILUS CAP (BACID) PO SCH ×2 (08:31→17:08)
[2020-01-31] MEDS: BICITRA 30ML SOLN UDC PO SCH ×3 (08:31→20:43)
[2020-01-31] MEDS: FAMOTIDINE 20 MG TAB PO SCH (08:31)
[2020-01-31] MEDS: PERCOCET 5MG/325MG TAB PO PRN ×3 (08:32→22:44)
--- NOTE | 2020-01-31 09:58 | IPNPDOC ---
Date Seen The patient was seen on 01/31/20. Progress Note c/o 7/10 pain right dialysis catheter and requested pain meds after breakfast. HD yesterday w 2liters removed. no c/o cp, sob, dizziness, flank pain, or lower abd pain/bladder pain. no fever or chills. no other issues. tele neg PE vitals see below Awake, alert,and oriented to person, place and time. No jugular venous distension (JVD) or thyromegaly. right neck dialysis catheter Lungs: Diminished with fine crackles bilateral bases. Heart: S1,S2, sinus tachycardia. A bdomen: Obese, soft, nontender, nondistended. Positive bowel sounds. Positive left costovertebral angle (CVA) tenderness. Extremities:Trace edema. LABORATORY DATA: see below ASSESSMENT AND PLAN: This is a 44-year-old female admitted on 01/27/2020 with complaint of hematuria and dysuria for two days. She has a history of recurrent nephrolithiasis, urinary tract infections (UTIs), lithotripsy, morbid obesity body mass index (BMI) 41, gastric bypass surgery and probable obstructive sleep apnea, not formally diagnosed, admitted with complaints of low grade fever, found to have a urinary tract infection, moderate hydronephrosis on the left along with ureterolysis. The patient had admission creatinine of 1.69. Despite fluid hydration, the patient's creatinine worsened to 2.7, at which point she was brought to the operating room for a cystoscopy, left ureteroscopy along with stent placement and laser lithotripsy. Despite surgical intervention, the patient remains with severe metabolic acidosis, worsening azotemia. CT of the abdomen shows scarring on the right kidney. Nephrology has been consulted and suggested IV fluid hydration. IMPRESSION: Acute renal failure , new to HD left UVJ stone status post cystoscopy, left uteroscopy stent placement laser lithotripsy metabolic acidosis due to renal failure history of recurrent kidney stones and has scarring on the right kidney left hydronephrosis. hyperkalemia,resolved with dialysis obstructive uropathy Hypoxia. Obesity. Body mass index (BMI) of 44. History of gastric bypass surgery. Hypercholesterolemia. plan: dialysis needs per nephrology. urine cx negative continue present mgt, and defer to nephrology for dc date. urology consulted. continued on home meds prn pain meds. VS, I&O, 24H, Fishbone Vital Signs/I&O Vital Signs Date Time Temp Pulse Resp B/P (MAP) Pulse Ox O2 Delivery O2 Flow Rate FiO2 01/31/20 06:00 99.0 107 17 148/88 (108) 91 Room Air 01/29/20 21:00 1.0 I&O- Last 24 Hours up to 6 AM 01/31/20 06:00 Intake Total 560 ml Output Total 3200 ml Balance -2640 ml Laboratory Data 24H LABS Laboratory Tests 2 01/31/20 05:49: Immature Granulocyte % (Auto) 0.5, Neutrophils (%) (Auto) 65.1, Lymphocytes (%) (Auto) 20.9L, Monocytes (%) (Auto) 9.2H, Eosinophils (%) (Auto) 3.8H, Basophils (%) (Auto) 0.5, Neutrophils # (Auto) 4.3, Lymphocytes # (Auto) 1.4L, Monocytes # (Auto) 0.6, Eosinophils # (Auto) 0.3, Basophils # (Auto) 0.0, Nucleated Red Blood Cells % (auto) 0.0, Anion Gap 7L, Glomerular Filtration Rate 10.7L, Calcium Level 8.1L CBC/BMP Laboratory Tests 01/31/20 05:49 Microbiology Microbiology 01/27/20 Urine Culture - Final, Complete JANNETTE ATKINS MD January 31, 2020 07:41
[2020-01-31] MEDS ORDERED: PERCOCET 5MG/325MG TAB PO ONE (10:00)
[2020-01-31 11:00] VITALS: O2SAT 90
--- NOTE | 2020-01-31 11:10 | IPN ---
DATE: 01/29/2020 Ms. Browne was seen and examined this morning. She states she is feeling better. Her abdominal discomfort improved significantly after the Tillman was removed this morning. She states that burning on urination and the discomfort that she had from the insertion completely resolved as well as the costovertebral angle (CVA) tenderness. She does state that she is relatively well, but she will sleep better today because the Tillman is out. She really has no complaints today. She denies any palpitations, shortness of breath, or any trouble breathing. She has no other complaints at the current time. PHYSICAL EXAM: Vital signs: Temperature 98.5, pulse 109, respirations 16, blood pressure 125/72 (89), pulse oximetry 90% on room air. Intake total 1750, output total 1100 mL, balance of 650 mL. No new weight was recorded today. General: This is a very pleasant 44-year-old morbidly obese female sitting up in her bed, who does not appear in acute distress, appropriately answering questions. HEENT: Atraumatic, normocephalic. Moist mucous membranes. No jugular venous distention (JVD) noted. Cardiovascular: S1, S2 sounds are present. Tachycardic rate, maximum (max) of 110. Regular rhythm. No audible murmurs, rubs, or gallops. Respiratory: Clear to auscultate bilaterally. No audible wheezing, rhonchi or rales. Abdomen: Morbidly obese abdomen, nontender, nondistended with positive bowel sounds in all four quadrants. No costovertebral (CVA) tenderness appreciated, on the left back, bruising appreciated over the L2-L3 area. No hematoma or spinal tenderness or swelling noted. Extremities: No lower extremity edema appreciated. LABORATORY DATA: Hematology: WBC 8.0, hemoglobin 10.2, hematocrit 33.7, platelets 245,000. Chemistry: Sodium 142, potassium 4.8, chloride 112, carbon dioxide 16, anion gap 14, BUN 27, creatinine 6.01, GFR 8.1, fasting glucose 69, calcium 7.7. No new ABG. INPATIENT MEDICATIONS: - Percocet 1-2 tabs - sodium bicarbonate drip - oxybutynin - atorvastatin - Pyridium - Lipitor - Pepcid - Zofran - Zoloft - Dilaudid - ceftriaxone - Bacid ASSESSMENT AND PLAN: 1. Acute nonoliguric renal failure. In the last 24 hours, the patient continues to make greater than 500 mL of urine. The Tillman was removed today, and she states that she continues to void just fine after the Tillman was removed. Even though her creatinine level has been bumped up slightly to 6.0, the patient has continued to make good urine, has appropriate mentation with normal electrolytes. I do believe that the elevated creatinine level needs time to catch up, and I predict it will come down in the next couple of days. Once the creatinine level plateaus, it should down trend in the next one day to two and will monitor her urine output as well as her mentation. At the current time, we still continue to believe she does not need other inpatient intervention. Upon discharge, she will need a nuclear renal scan to assess her kidney function, especially her right secondary to her renal scarring. 2. Pyelonephritis. Urine culture showed negative for growth. She was on ceftriaxone 2 grams 24 hours, was discontinued today. Her white count has normalized, and her costovertebral angle tenderness as well. She has completed 3 days of antibiotics, it is ok to discontinue Rocephin . 3. Non-anion gap metabolic acidosis. She was on bicarbonate drip, and she was monitored appropriately. Because she is tolerating oral intake, we will actually switch her to oral bicarbonate in the form of Bicitra 10 mL three times a day and will monitor her carbon dioxide and anion gap level. 4. Hyperkalemia, has resolved. Possibly secondary to the bicarbonate drip as well as urine output. 5. Left hydroureteronephrosis secondary to obstructive kidney stones, status post left ureteral stent placement. Urology is following. 6. History of recurrent urinary tract infection with right renal scarring. I believe this is contributing to problem #1. On discharge, she will need a formal nuclear renal scan to assess her kidney function, especially on the right. This is not emergent to be done inpatient unless the patient's mentation, acidosis does not correct with the oral bicarbonate and if her urine output is not adequate after discontinuation of the Tillman. NHUNG
[2020-01-31 14:00] VITALS: BP 150/80
--- NOTE | 2020-01-31 15:38 | ECHO ---
DATE OF PROCEDURE: 01/30/2020 REFERRING PHYSICIAN: Dr. Keating INDICATION: Dyspnea. Patient measures 155 cm and weighs 106 kg. DIMENSIONS: Aorta: 2.5 LA: 3.3 IVC: 1.0 LV: 3.9 LVPW: 1.0 Mitral E wave velocity: 121 E prime septal: 12.0 E prime lateral: 11.6 IVC: 2.5 FINDINGS: The study is of fair technical quality corresponding to patient's body habitus. She is in sinus rhythm with first-degree atrioventricular (AV) block and ventricular rate around 105 beats per minute. Left ventricle is normal size and has normal contractility. Estimated left ventricular ejection fraction (LVEF) 65-70%. I do not appreciate any segmental wall motion abnormality. Right ventricle appears dilated but was relatively poorly visualized. I cannot comment on its contractility. Both atria appear grossly normal. All four cardiac valves were reasonably well seen and appear normal. No pericardial effusion is noted. Inferior vena cava is dilated and has no appreciable collapse with inspiration indicative of likely very high central venous pressure. Aortic root, aortic arch and abdominal aorta all appear normal. Doppler interrogation reveals no aortic stenosis or insufficiency. There is trace mitral insufficiency and trace tricuspid insufficiency. Calculated pulmonary artery pressure is at a minimum 50 mmHg and possibly higher corresponding to at least moderate pulmonary hypertension. Pulmonic valve is functionally competent. Mitral inflow pattern demonstrates fusion of mitral E and A wave but considering normal tissue Doppler velocities of mitral annulus, I assume most likely normal diastolic function. CONCLUSIONS: 1. Study is of acceptable technical quality, the patient is in sinus tachycardia. 2. Normal left ventricular (LV) size with normal LV systolic and likely also normal diastolic function. 3. Dilated right ventricle. 4. No significant valvular disease. 5. Very high central venous pressure and at least moderate and possibly moderate to severe pulmonary hypertension. COMMENT: The severity of pulmonary hypertension seems sufficient to explain dyspnea. If not taken into consideration, would definitely look for evidence of pulmonary embolism in differential diagnosis.
--- NOTE | 2020-01-31 17:35 | IPN ---
DATE: 01/30/2020 HISTORY OF PRESENT: Seen and examined this morning at bedside. She states she is feeling a little bit better. After the Tillman had been removed yesterday, she slept very well last night versus the night prior. She endorses that she is able to go to the bathroom and is always slightly short of breath when she lays flat on her bed and she likes to sit up and lean forward when she is sleeping or would like to have multiple pillows on the bed, as much as three pillows. There are no other overnight events reported to nursing. It does note that she did have some left flank pain, but it is not as severe, reports it is improving day by day. She denies any dysuria, fever, chills, night sweats, nausea, vomiting, diarrhea. PHYSICAL EXAMINATION: VITALS: Temperature 98.7, pulse 104, respirations 19, blood pressure 122/80, MAP 94, pulse oximetry 92 on room air. GENERAL: This is a very morbidly obese, pleasant 44-year-old female, who does not appear in acute distress, alert and oriented times three, appropriately answering questions, no accessory muscle use. LUNGS: Very diminished, bibasilar crackles appreciated. No audible wheezing noted. Clear to auscultation in the upper lungs bilaterally. CARDIAC: S1, S2 sounds are present. Tachycardiac rate, but no audible murmurs, rubs or gallops. ABDOMEN: Morbidly obese, soft, nontender, nondistended. Positive bowel sounds in all four quadrants. Very minimal left costovertebral angle tenderness, improved from yesterday. Tillman urine is yellow. EXTREMITIES: Very minimal trace edema up to the ankles bilaterally, not significant. LABORATORY: White blood count (WBC) 6.7, hemoglobin 9.7, hematocrit 31.9, platelets 252. Chemistry: Sodium 139, potassium 5.2, chloride 111, carbon dioxide 19, anion gap 9, BUN 33, creatinine 7.45, fasting glucose 68, calcium 7.7, ionized calcium of 4.6. Pro-BNP 2340. Chest x-ray from yesterday showed cephalization of the pulmonary vasculature, plate-like atelectasis in the left base behind the heart, otherwise negative for active disease. NEW MEDICATIONS: Percocet one to two tabs as needed, Pyridium 200 mg three times a day. ASSESSMENT AND PLAN: 1. Acute nonoliguric acute renal failure. Even though the patient has adequate amount of urine, her basic metabolic panel (BMP) showed electrolyte abnormalities with hyperkalemia, as well as her BUN and creatinine continues to elevate, on repeat elevated with a peak of 7.4 today. Her chest x-ray did show increased cephalization and she was slightly short of breath overnight secondary to multiple pillows. The patient will need dialysis at this time. A dialysis catheter was placed by me today and she will go dialysis with it today and later this afternoon. The possible causes of the acute nonoliguric renal failure unsure. This most like that she only had mild to moderate hydroureter nephrosis and the stone was already passed by the time a stent was placed. We do not understand why she is having significant acute kidney injury even though she has an underlying re-scaring of the right kidney. We recommend obtaining a 24-hour urine collection tomorrow for the following calcium, uric acid oxylate citric acid and phosphate and renal ultrasound. 2. Pyelonephritis, resolved. Completing antibiotics. 3. Non-ion gap metabolic acidosis. Her carbon dioxide was 19 with an anion gap of 9 today. She is status post sodium bicarbonate. She is currently on oral bicarbonate. She will be going to dialysis later this afternoon for problem #1. She will followup with her non-ion gap metabolic acidosis. 4. Hyperkalemia. Potassium is elevated today with electrolyte abnormalities despite having urine output. Because she is going to dialysis today, there should be correction of these electrolytes and I will monitor it. 5. History of recurrent nephrolithiasis. Status post multiple lithotripsies in the past. The patient states that she has multiple kidney stones, unsure due to why she does have scarring of the right kidney, so do recommend getting a renal ultrasound and getting a 24 hour collection, which are all stated above in problem 1. Will need to followup. Upon discharge though, she will need to have a formal nuclear scan to assess her kidney function. 6. Left hydroureter nephrosis secondary to obstructive kidney stones, status post left renal stent placement.
[2020-01-31] MEDS: ATORVASTATIN 10 MG TAB PO SCH (20:43)
[2020-01-31 21:00] VITALS: BP 170/92; O2SAT 90
[2020-01-31 22:00] VITALS: BP_SYST 150; BP_SYST 170; BP_DIAS 88; BP_DIAS 92
[2020-02-01] VITALS (7 sets, daily range): BP systolic 130–164; BP diastolic 74–112; O2SAT 90–92
[2020-02-01 06:07] LABS: BASO % 0.6 % (0.0-1.0); EOS # 0.3 10^3/uL (0.0-0.5); HEMATOCRIT 32.7 % (36.0-47.0); HEMOGLOBIN 10.3 g/dl (12.0-15.5); LYMPH # 1.5 10^3/uL (1.5-5.0); LYMPH % 23.3 % (24.0-44.0); MEAN CORPUSCULAR HEMOGLOBIN 30.5 pg (27.0-33.0); MEAN CORPUSCULAR HGB CONC 31.5 g/dl (32.0-36.5); MEAN CORPUSCULAR VOLUME 96.7 fl (80.0-96.0); MONO # 0.6 10^3/uL (0.0-0.8); MONO % 8.6 % (0.0-5.0); NEUTROPHILS # 3.9 10^3/uL (1.5-8.5); NEUTROPHILS % 61.9 % (36.0-66.0); PLATELET COUNT, AUTOMATED 269 10^3/uL (150-450); RED BLOOD COUNT 3.38 10^6/uL (4.00-5.40); WHITE BLOOD COUNT 6.4 10^3/uL (4.0-10.0)
[2020-02-01 06:33] LABS: CREATININE FOR GFR 6.16 MG/DL (0.55-1.30); GLOMERULAR FILTRATION RATE 7.9 (>58); POTASSIUM SERUM 3.7 MEQ/L (3.5-5.1)
[2020-02-01] MEDS: SERTRALINE 100 MG TAB PO SCH (08:45)
[2020-02-01] MEDS: LACTOBACILLUS ACIDOPHILUS CAP (BACID) PO SCH ×2 (08:46→17:09)
[2020-02-01] MEDS: FAMOTIDINE 20 MG TAB PO SCH (08:46)
[2020-02-01] MEDS: PHENAZOPYRIDINE 100 MG TAB PO SCH ×3 (08:46→20:18)
[2020-02-01] MEDS: PERCOCET 5MG/325MG TAB PO PRN ×2 (08:48→18:26)
[2020-02-01] MEDS: BICITRA 30ML SOLN UDC PO SCH ×3 (08:48→20:18)
[2020-02-01 09:17] LABS: APPEARANCE, URINE CLEAR (CLEAR); BACTERIA, URINE AUTO NEGATIVE (NEGATIVE); BILIRUBIN, URINE AUTO NEGATIVE (NEGATIVE); BLOOD, URINE BLOOD 2+ (NEGATIVE); COLOR, URINE AMBER (YELLOW); GLUCOSE, URINE (UA) AUTO NEGATIVE (NEGATIVE); KETONE, URINE AUTO TRACE mg/dL (NEGATIVE); LEUKOCYTE ESTERASE, URINE AUTO 2+ (NEGATIVE); MUCUS, URINE SMALL (NEGATIVE); NITRITE, URINE AUTO POSITIVE (NEGATIVE); PROTEIN, URINE AUTO NEGATIVE (NEGATIVE); RBC, URINE AUTO 41 /HPF (0-3); SPECIFIC GRAVITY URINE AUTO 1.004 (1.002-1.035); SQUAMOUS EPITHELIAL CELL UR AU 1 /HPF (0-6); WBC, URINE AUTO 20 /HPF (0-3)
[2020-02-01 10:18] LABS: HEPATITIS B SURFACE ANTIBODY NEGATIVE (POSITIVE)
[2020-02-01 10:28] LABS: HEPATITIS B SURFACE ANTIGEN NEGATIVE (NEGATIVE)
--- NOTE | 2020-02-01 10:31 | IPN ---
DATE OF VISIT: 01/31/2020 Mrs. Browne is seen this morning on her bedside. She underwent acute hemodialysis yesterday via a temporary catheter placement in her right internal jugular vein. She was complaining of pain at the catheter site yesterday but feels well today. Her dialysis was uneventful. She denies any dyspnea, chest pain, nausea or vomiting. She also had a renal ultrasound done due to persistent and worsening acute renal failure, which showed only focal, defect or scar in the upper right kidney which is old. She has a stent in her left ureter and otherwise, it was a negative ultrasound. No more hydronephrosis noticed in the left kidney. She does have urine output but her kidney function has not improved as of today. On physical exam, temperature 99 degrees Fahrenheit, heart rate 107 per minute and respiratory rate 18 per minute. Blood pressure 148/88 mmHg and oxygen saturation 93% on room air. She is comfortable, lying in the bed. Head is atraumatic. Neck is supple and without jugular venous distention (JVD) or thyroid enlargement. A temporary hemodialysis catheter is present in right internal jugular vein. Heart sounds are somewhat tachycardiac and lungs sound clear to auscultation. Abdomen obese, soft and nontender, and bowel sounds are normal. Extremities without any cyanosis or clubbing. Neurologically, she is awake, alert and oriented times three. Today's labs show WBC count 6.5, hemoglobin 10.0 and hematocrit 31.7. Platelets 271. Sodium 141, potassium 4.0, CO2 28, BUN 17 and creatinine 4.72. Calcium level 8.1. PROBLEMS: 1. Acute renal failure superimposed on chronic kidney disease. She does have some underlying chronic kidney disease due to prior kidney stones and lithotripsies. Yesterday, she underwent first hemodialysis due to worsening kidney function, metabolic acidosis and hyperkalemia. Her BUN and creatinine has improved significantly with dialysis. We will watch her kidney function now, and no need for dialysis today. Depending upon her kidney function over next 24-48 hours, we will make a decision about further dialysis. 2. Hypertension. Blood pressure is reasonable, and she is currently not on any antihypertensive medication. We will continue to watch her closely. 3. Metabolic acidosis. She had acute renal failure causing metabolic acidosis, which has improved and resolved with hemodialysis. No other intervention is indicated. 4. Hyperkalemia. Her potassium level has corrected completely down to normal and no intervention is needed at present. 5. Left-sided hydronephrosis. She has a stent in her left kidney and hydronephrosis has resolved. Unfortunately, her kidney function has not improved as yet. We will check her renal profile tomorrow.
[2020-02-01 10:56] LABS: HEPATITIS B CORE ANTIBODY IGM NEGATIVE (NEGATIVE)
[2020-02-01] MEDS: ONDANSETRON 4MG/2ML VIAL IV PRN ×2 (13:06→22:14)
[2020-02-01] MEDS ORDERED: PROMETHAZINE INJ 25 MG/ML VIAL (J2550) IV ONE (14:00)
[2020-02-01] MEDS ORDERED: cloNIDine 0.2 MG TAB PO ONE (14:15)
[2020-02-01] MEDS ORDERED: amLODIPine 5 MG TAB PO ONE ×2 (14:15→17:15)
--- NOTE | 2020-02-01 15:24 | IPNPDOC ---
Date Seen The patient was seen on 02/01/20. Progress Note SUBJECTIVE: c/o nausea s/p HD 1liter removed with diastolic bp 113mmHg, given one dose of clonidine and norvasc. no chest pain, sob, vomiting, or abd pain. denies suprapubic pain or flank pain, no chills. oliguric overnight only 500 ml, needed HD this am. still with creatinine of 6. no c/o headache, changes in vision, or blurred vision. OBJECTIVE: PHYSICAL EXAMINATION VITALS: see below General: no respiratory distress AAOx3 in bed at 45 degrees eyes closed HEENT: no pallor icterus no JVD. rt IJ HD catheter discontinued. slight tenderness no erythema or signs of cellulitis Lungs: AEBE ctab no wheezing or rales Heart: S1, S2, sinus tachycardia. Abdomen: Obese, soft, nontender, nondistended. Positive bowel sounds. Positive left costovertebral angle (CVA) tenderness. Extremities:Trace edema. LABORATORY DATA: Reviewed. ASSESSMENT AND PLAN: This is a 44-year-old female admitted on 01/27/2020 with complaint of hematuria and dysuria for two days. She has a history of recurrent nephrolithiasis, urinary tract infections (UTIs), lithotripsy, morbid obesity body mass index (BMI) 41, gastric bypass surgery and probable obstructive sleep apnea, not formally diagnosed, admitted with complaints of low grade fever, found to have a urinary tract infection, moderate hydronephrosis on the left along with ureterolysis. The patient had admission creatinine of 1.69. Despite fluid hydration, the patient's creatinine worsened to 2.7, at which point she was brought to the operating room for a cystoscopy, left ureteroscopy along with stent placement and laser lithotripsy. Despite surgical intervention, the patient remains with severe metabolic acidosis, worsening azotemia. CT of the abdomen shows scarring on the right kidney. Nephrology has been consulted and suggested IV fluid hydration. Hypertensive urgency will check bp q4hrs until controlled. s/p clonidine and norvasc. if bp permits, will give betablocker, avoid renetta inh and arb due to renal failure. Acute renal failure secondary to left UVJ stone, status post cystoscopy, left uteroscopy stent placement and laser lithotripsy with persistent azotemia requiring inpt hd. permacath placement saturday. s/p left HD catheter and 2 HD sessions so far. nephrology managing HD needs. uncertain why pt has not recovered quickly since stent placed, but chronic right scarring most likely contributed. Recurrent kidney stones, status post cystoscopy, laser lithotripsy and stent placemen Metabolic acidosis and hyperkalemia, resolved s/p bicarbonate iv gtt. now on HD session #2 . IR consulted for Saturday permacath. Dr. Santana requested monitoring for the next 48hrs to see if renal function improves. Hypoxia. - CT chest negative on admission - V/Q scan, ruled pulmonary embolism, -per brick wheeler, Dr. Srinivasan, who has reviewed her CT chest on admission. incentive spirometry and outpt PFTs. Obesity. Body mass index (BMI) of 44. - History of gastric bypass surgery -at risk for hypercapnic respiratory failure , so dilaudid discontinued. Hypercholesterolemia. Continue on statin. disposition: pt to decide if she is ok with permacath on Saturday. can dc home in am or stay until saturday per Dr. Santana's recommendations. discussed case with pt's Mark . VS, I&O, 24H, [facility] Vital Signs/I&O Vital Signs Date Time Temp Pulse Resp B/P (MAP) Pulse Ox O2 Delivery O2 Flow Rate FiO2 02/01/20 09:18 18 02/01/20 06:00 97.0 88 130/74 (92) 97 Room Air 01/29/20 21:00 1.0 I&O- Last 24 Hours up to 6 AM 02/01/20 06:00 Intake Total 1680 ml Output Total 750 ml Balance 930 ml Laboratory Data 24H LABS Laboratory Tests 2 02/01/20 05:40: Immature Granulocyte % (Auto) 0.6, Neutrophils (%) (Auto) 61.9, Lymphocytes (%) (Auto) 23.3L, Monocytes (%) (Auto) 8.6H, Eosinophils (%) (Auto) 5.0H, Basophils (%) (Auto) 0.6, Neutrophils # (Auto) 3.9, Lymphocytes # (Auto) 1.5, Monocytes # (Auto) 0.6, Eosinophils # (Auto) 0.3, Basophils # (Auto) 0.0, Nucleated Red Blood Cells % (auto) 0.3H, Anion Gap 10, Glomerular Filtration Rate 7.9L, Calcium Level 8.0L 02/01/20 08:57: Urine Color DAWIT, Urine Appearance CLEAR, Urine pH 7.0, Urine Specific [place] 1.004, Urine Protein NEGATIVE, Urine Glucose (Auto)(UA) NEGATIVE, Urine Ketones (Auto) TRACEH, Urine Blood 2+H, Urine Nitrite POSITIVE, Urine Bilirubin NEGATIVE, Urine Urobilinogen 2.0H, Urine Leukocyte Esterase (Auto) 2+H, Urine WBC (Auto) 20H, Urine RBC (Auto) 41H, Urine Hyaline Casts (Auto) 0, Urine Bacteria (Auto) NEGATIVE, Urine Squamous Epithelial Cells 1, Urine Mucus (Auto) SMALL, Urine Sperm (Auto) CBC/BMP Laboratory Tests 02/01/20 05:40 Microbiology Microbiology 01/27/20 Urine Culture - Final, Complete JANNETTE ATKINS MD Feb 01, 2020 14:16
[2020-02-01] MEDS ORDERED: cloNIDine 0.1 MG TAB PO ONE (17:30)
[2020-02-01] MEDS: ATORVASTATIN 10 MG TAB PO SCH (20:18)
[2020-02-02] MEDS: PERCOCET 5MG/325MG TAB PO PRN ×4 (00:43→20:09)
[2020-02-02 06:00] VITALS: BP 156/90
[2020-02-02 06:02] LABS: BASO # 0.1 10^3/uL (0.0-0.2); EOS # 0.3 10^3/uL (0.0-0.5); EOS % 5.6 % (0.0-3.0); HEMATOCRIT 33.2 % (36.0-47.0); HEMOGLOBIN 10.6 g/dl (12.0-15.5); LYMPH # 1.8 10^3/uL (1.5-5.0); LYMPH % 28.6 % (24.0-44.0); MEAN CORPUSCULAR HEMOGLOBIN 30.8 pg (27.0-33.0); MEAN CORPUSCULAR HGB CONC 31.9 g/dl (32.0-36.5); MEAN CORPUSCULAR VOLUME 96.5 fl (80.0-96.0); MONO # 0.5 10^3/uL (0.0-0.8); MONO % 7.7 % (0.0-5.0); NEUTROPHILS # 3.4 10^3/uL (1.5-8.5); PLATELET COUNT, AUTOMATED 266 10^3/uL (150-450); RED BLOOD COUNT 3.44 10^6/uL (4.00-5.40); WHITE BLOOD COUNT 6.1 10^3/uL (4.0-10.0)
[2020-02-02 06:25] LABS: CALCIUM LEVEL 8.4 MG/DL (8.5-10.1); CREATININE FOR GFR 4.38 MG/DL (0.55-1.30); GLOMERULAR FILTRATION RATE 11.7 (>58); POTASSIUM SERUM 3.5 MEQ/L (3.5-5.1)
[2020-02-02] MEDS: ONDANSETRON 4MG/2ML VIAL IV PRN (06:58)
--- NOTE | 2020-02-02 07:22 | IPNPDOC ---
Date Seen The patient was seen on 02/02/20. Progress Note SUBJECTIVE: This is a 44 yo female with a pertinent PMH of recurrent UTI, kidney stones, hyperlipidemia and GERD who presented to the emergency room for urinary frequency, dysuria, and left flank pain for at least few days prior to admission, and she has had a low grade fever with no improvement of radiating left-sided pain that she rated as 8/10. She was admitted the evening of 01/27/2020 for mild to moderate left-sided hydroureteronephrosis secondary to obstructive kidney stone s/p cystoscopy, left ureteroscopy and left ureteral stent placement by Dr. Malhotra on 01/27/2020. A stent was placed for significant ureteral edema at the left UV junction. Pt's creatinine increased from 2 to 4.1 and nephrology was consulted on 01/28/2020. She underwent acute hemodialysis on 01/31/2020 with temporary catheter placement in her right internal jugular vein. Pt reported that she has been urinating without dysuria, retention, or hematuria. Denies fever, chills, flank pain, or new back pain other than her chronic back pain. OBJECTIVE PHYSICAL EXAMINATION: VITAL SIGNS: Please see below. GENERAL APPEARANCE: Alert and awake, not in acute distress HEENT: Head normocephalic, atraumatic, b/l pupil equal and round. Mild ecchymosis in right neck lateral aspect RESPIRATORY: CTA b/l, no rales, wheezing, or rhonchi CARDIOVASCULAR: RRR, normal S1 and S2, no murmur but difficult to aus d/t body habitus ABDOMEN: Soft, no guarding, no abdominal pain. EXTREMITIES: No Rkistie's sign b/l. NEUROLOGICAL: Memory and cognitive function grossly stable. PSYCHIATRIC: Mood appro to situation BACK: mild ecchymosis noted in lower thoracic/lumbar spine region midline without opening or drainage LABORATORY DATA, IMAGING STUDIES, MICROBIOLOGY: Please see below. Echocardiogram: high central venous pressure and at least moderate and possibly moderate to severe pulmonary hypertension. ASSESSMENT AND PLAN: Pt is a 44 yo female with hx of recurrent UTI, lithotripsy, and morbid obesity s/p gastric bypass surgery admitted on 01/27/2020 due to hematuria and dysuria for two days as well as fever. Pt had UTI with left UVJ stone, left mod. hydronephrosis and underwent cystoscopyand left ureteroscopy stent placement Nephrology was consulted as pt has TANYA on CKD and pty underwent 2nd hemodialysis. PROBLEMS: 1. TANYA on CKD: renal ultrasound done due to persistent and worsening acute renal failure, which showed only focal defect or scar in the upper right kidney which is old. Underlying chronic kidney disease due to prior kidney stones. Urine cx neg. 01/31/2020 2nd hemodialysis due to worsening kidney function, metabolic acidosis and hyperkalemia. Nephrology following, possible further dialysis depending upon her kidney function over next 24-48 hours. LATASHA ordered pending. 2. Hypertension. Not on HTN meds at home. HTN urgency resolved s/p clonidine and amlodipine. Pt was started on amlodipine 10mg BID 02/02/2020 morning. 3. Metabolic acidosis, d/t TANYA. S/p bicarb iv gtt. Last blood gas 01/27/2020 showed metabolic acidosis. Repeat VBG 4. Left-sided hydronephrosis. Stent in her left kidney and hydronephrosis has resolved. GFR and creatinine mildly increased compared to 02/01/2020. Nephrology following. 5. Left UVJ stone,status post cystoscopy, left stent placement 6. Hypoxia, resolved. CT chest and V/Q scan neg upon admission. It was noted that prior discussion with Dr. Srinivasan was made, who has reviewed her CT chest on admission. Pt currently sat at 90% on RA. Echo 01/30/2020 showed high central venous pressure and at least moderate and possibly moderate to severe pulmonary hypertension. Pt already on amlodipine and denies any dyspnea, cough, or wheezing. May also have a component of restrictive lung dz d/t pt body habitus. Albuterol PRN. 7. Morbid obesity. BMI of 44. History of gastric bypass surgery 8. Hypercholesterolemia. Continue home statin. DISPOSITION: Pt to decide if she is ok with permacath on Saturday. December dc home until saturday per Dr. Santana's recommendations. Prior discussion made with pt's Mark . DVT prophylaxis: SCD GI prophylaxis: Pepcid Attending attestation: I evaluated and examined the patient in person; I discussed the care with Resident in detail and agree with the plan above. VS, I&O, 24H, Fishbone Vital Signs/I&O Vital Signs Date Time Temp Pulse Resp B/P (MAP) Pulse Ox O2 Delivery O2 Flow Rate FiO2 02/02/20 06:58 20 02/02/20 06:00 97.8 104 156/90 (112) 90 Room Air 01/29/20 21:00 1.0 I&O- Last 24 Hours up to 6 AM 02/02/20 06:00 Intake Total 960 ml Output Total 2800 ml Balance -1840 ml Laboratory Data 24H LABS Laboratory Tests 2 02/01/20 08:57: Urine Color DAWIT, Urine Appearance CLEAR, Urine pH 7.0, Urine Specific Hoskins 1.004, Urine Protein NEGATIVE, Urine Glucose (Auto)(UA) NEGATIVE, Urine Ketones (Auto) TRACEH, Urine Blood 2+H, Urine Nitrite POSITIVE, Urine Bilirubin NEGATIVE, Urine Urobilinogen 2.0H, Urine Leukocyte Esterase (Auto) 2+H, Urine WBC (Auto) 20H, Urine RBC (Auto) 41H, Urine Hyaline Casts (Auto) 0, Urine Bacteria (Auto) NEGATIVE, Urine Squamous Epithelial Cells 1, Urine Mucus (Auto) SMALL, Urine Sperm (Auto) 02/02/20 05:41: Immature Granulocyte % (Auto) 1.1, Neutrophils (%) (Auto) 56.0, Lymphocytes (%) (Auto) 28.6, Monocytes (%) (Auto) 7.7H, Eosinophils (%) (Auto) 5.6H, Basophils (%) (Auto) 1.0, Neutrophils # (Auto) 3.4, Lymphocytes # (Auto) 1.8, Monocytes # (Auto) 0.5, Eosinophils # (Auto) 0.3, Basophils # (Auto) 0.1, Nucleated Red Blood Cells % (auto) 0.5H, Anion Gap 5L, Glomerular Filtration Rate 11.7L, Calcium Level 8.4L CBC/BMP Laboratory Tests 02/02/20 05:41 Microbiology Microbiology 01/27/20 Urine Culture - Final, Complete GME ATTESTATION GME ATTESTATION My faculty preceptor for this patient encounter was physically present during the encounter and was fully available. All aspects of the patient interview, examination, medical decision making process, and medical care plan development were reviewed and approved by the faculty preceptor. The faculty preceptor is aware and concurs with the plan as stated in the body of this note and will attest to such by his/her cosignature. STANLEY HOWE DO Feb 02, 2020 07:22 NEVAEH GONZALEZ MD Feb 08, 2020 08:18
[2020-02-02 07:58] LABS: VENOUS BASE EXCESS 6.4 (-2.0-2.0); VENOUS HCO3 33.4 MEQ/L (23.0-27.0); VENOUS PARTIAL PRESSURE CO2 62.3 mmHg (38.0-50.0); VENOUS PARTIAL PRESSURE O2 81.5 mmHg (30.0-50.0); VENOUS PH 7.347 UNITS (7.330-7.430); VENOUS STANDARD HCO3 30.2 MEQ/L; VENOUS TOTAL CO2 35.3 MEQ/L (24.0-28.0)
[2020-02-02] MEDS ORDERED: ALBUTEROL 90 MCG/ACT 8GM HFA INHALER INH PRN (08:15)
[2020-02-02] MEDS: LACTOBACILLUS ACIDOPHILUS CAP (BACID) PO SCH ×2 (09:25→17:05)
[2020-02-02] MEDS: PHENAZOPYRIDINE 100 MG TAB PO SCH ×3 (09:25→20:08)
[2020-02-02] MEDS: BICITRA 30ML SOLN UDC PO SCH ×3 (09:25→20:08)
[2020-02-02] MEDS: amLODIPine 10 MG TAB PO SCH (09:25)
[2020-02-02] MEDS: FAMOTIDINE 20 MG TAB PO SCH (09:25)
[2020-02-02] MEDS: SERTRALINE 100 MG TAB PO SCH (09:25)
--- NOTE | 2020-02-02 10:12 | IPN ---
DATE OF SERVICE: 02/01/2020 SUBJECTIVE: Ms. Browne was seen and examined this morning during bedside rounds on the floor as well as hemodialysis. She is laying comfortably in bed. She does not indicate any acute distress. She has no complaints today. Her labs were reviewed and showed her BUN and creatinine function did not improve and actually worsened today at 23 and 6.16 respectively. The patient still denies any symptoms such as fevers, chills, nausea, vomiting, diarrhea. She does have some discomfort to the right dialysis catheter on her neck, but no abdominal pain or costovertebral angle (CVA) tenderness. There were no overnight events reported by nursing. PHYSICAL EXAMINATION: Vitals: Temperature 97.0, pulse 88, respirations 18, blood pressure 130/74 (92), pulse oximetry 97% on room air. General: This is a very pleasant 44-year-old female laying comfortably in the bed who does not appear in acute distress, appropriately answering questions, alert and oriented times three, with no accessory muscle use. HEENT: Atraumatic, normocephalic. Right IJ temporary dialysis catheter in place. Heart: Regular rate and rhythm. No audible murmurs, rubs or gallops. Lungs: Clear to auscultate bilaterally. Abdomen: Morbidly obese abdomen. Positive bowel sounds in all four quadrants. No tenderness to palpation. No CVA tenderness. Lower Extremities: No lower extremity edema appreciated. LABORATORIES: Hematology: White blood count (WBC) 6.4, hemoglobin 10.3, hematocrit 32.7, platelets 269. Chemistry: Sodium 145, potassium 3.7, chloride 106, carbon dioxide 29, anion gap 10, BUN 23, creatinine 6.17, GFR 7.9, fasting glucose 85, calcium 8.0. Hepatitis B panel negative except for hep B core IgG currently pending and hepatitis C negative. Renal ultrasound from 01/30/2020 shows focal parenchymal defect or scar in the right upper kidney, stent in the left posterior aspect of the urinary bladder, otherwise negative renal sonogram. ASSESSMENT AND PLAN: 1. Acute renal failure superimposed on chronic kidney disease. The patient does have underlying chronic kidney disease with kidney stones as well as lithotripsy. She tolerated hemodialysis on Saturday and will undergo dialysis once again today. Her BUN and creatinine did worsen today. After dialysis, we will remove her dialysis catheter and reevaluate her kidney function on Saturday. At this current time, we recommend to keep the patient until we can reevaluate her kidney function in the next 48 hours. Pending how her kidney function looks on Saturday, will decide if we need to place a PermaCath for outpatient dialysis. Will need to followup with her 24 hour urine clearance as well as a urinalysis (UA) to see if she is putting any proteins and to see if there is any other underlying issue of why she has acute kidney injury (TANYA). 2. Hypertension. Blood pressure is reasonable. She is not on any hypertensive medication. Will continue to monitor. 3. Metabolic acidosis. This improved actually with the hemodialysis so no other intervention needed at this current time. 4. Hyperkalemia, resolved with hemodialysis. 5. Left sided hydronephrosis. Currently has a status post stent in her left kidney. Kidney function has not improved, but she is undergoing dialysis today so will monitor the function for the next 24 to 48 hours. She continues to have a good urine output.
[2020-02-02 10:54] LABS: TOTAL VOLUME, URINE 1400 ML
[2020-02-02 10:55] LABS: CALCIUM, URINE < 5.0 MG/DL
[2020-02-02 10:56] LABS: PHOSPHOROUS 24 HR URINE 39.2 MG/24HR (400-1300); URIC ACID 24 HOUR URINE 85.4 MG/24HR (150-990); URINE PHOSPHOROUS 2.8 MG/DL
[2020-02-02] MEDS: ONDANSETRON 4 MG ORAL DISINTEGRATING TAB PO PRN ×2 (11:52→20:08)
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
[2020-02-02 14:00] VITALS: BP 143/72
[2020-02-02] MEDS ORDERED: ACETAMINOPHEN 325 MG TAB PO ONE (16:30)
[2020-02-02] MEDS: ATORVASTATIN 10 MG TAB PO SCH (20:09)
[2020-02-02 21:00] VITALS: O2SAT 94
[2020-02-02 22:00] VITALS: BP 140/82
[2020-02-03] MEDS: PERCOCET 5MG/325MG TAB PO PRN ×4 (03:07→22:30)
[2020-02-03 06:00] VITALS: BP 138/88
[2020-02-03 06:00] LABS: BASO # 0.1 10^3/uL (0.0-0.2); BASO % 0.6 % (0.0-1.0); EOS # 0.3 10^3/uL (0.0-0.5); EOS % 4.1 % (0.0-3.0); HEMATOCRIT 31.5 % (36.0-47.0); HEMOGLOBIN 9.9 g/dl (12.0-15.5); LYMPH # 2.1 10^3/uL (1.5-5.0); LYMPH % 26.3 % (24.0-44.0); MEAN CORPUSCULAR HEMOGLOBIN 30.7 pg (27.0-33.0); MEAN CORPUSCULAR HGB CONC 31.4 g/dl (32.0-36.5); MEAN CORPUSCULAR VOLUME 97.8 fl (80.0-96.0); MONO # 0.7 10^3/uL (0.0-0.8); MONO % 8.5 % (0.0-5.0); NEUTROPHILS # 4.7 10^3/uL (1.5-8.5); NEUTROPHILS % 58.8 % (36.0-66.0); PLATELET COUNT, AUTOMATED 288 10^3/uL (150-450); RED BLOOD COUNT 3.22 10^6/uL (4.00-5.40)
[2020-02-03 06:35] LABS: CALCIUM LEVEL 8.6 MG/DL (8.5-10.1); CREATININE FOR GFR 5.37 MG/DL (0.55-1.30); GLOMERULAR FILTRATION RATE 9.3 (>58); POTASSIUM SERUM 4.4 MEQ/L (3.5-5.1)
[2020-02-03] MEDS: LACTOBACILLUS ACIDOPHILUS CAP (BACID) PO SCH ×2 (08:38→17:46)
[2020-02-03] MEDS: SERTRALINE 100 MG TAB PO SCH (08:38)
[2020-02-03] MEDS: PHENAZOPYRIDINE 100 MG TAB PO SCH ×3 (08:38→20:58)
[2020-02-03] MEDS: FAMOTIDINE 20 MG TAB PO SCH (08:39)
[2020-02-03] MEDS: amLODIPine 10 MG TAB PO SCH (08:40)
[2020-02-03 11:00] VITALS: O2SAT 90
[2020-02-03] MEDS ORDERED: ceFAZolin 1GM VIAL (J0690 PER 500MG) As Ordered ONE (12:05)
[2020-02-03] MEDS ORDERED: LIDOCAINE 1% MDV 20ML VIAL As Ordered ONE (13:05)
[2020-02-03] MEDS ORDERED: ISOVUE-300 61% 50ML VIAL As Ordered ONE (13:05)
[2020-02-03] MEDS ORDERED: fentaNYL 100 MCG/2 ML INJECTION (J3010) As Ordered ONE (13:10)
[2020-02-03] MEDS ORDERED: MIDAZOLAM INJ 2MG/2ML VIAL (J2250 PER 1MG) As Ordered ONE (13:10)
[2020-02-03] MEDS ORDERED: diphenhydrAMINE 50MG/ML VIAL (J1200) As Ordered ONE (13:10)
[2020-02-03 15:11] LABS: ANTINUCLEAR ANTIBODIES DIRECT Negative (Negative)
--- NOTE | 2020-02-03 16:47 | IPNPDOC ---
Date Seen The patient was seen on 02/03/20. Progress Note SUBJECTIVE: This is a 44 yo female with a pertinent PMH of recurrent UTI, kidney stones, hyperlipidemia and GERD who presented to the emergency room for urinary frequency, dysuria, and left flank pain for at least few days prior to admission, and she has had a low grade fever with no improvement of radiating left-sided pain that she rated as 8/10. She was admitted the evening of 01/27/2020 for mild to moderate left-sided hydroureteronephrosis secondary to obstructive kidney stone s/p cystoscopy, left ureteroscopy and left ureteral stent placement by Dr. Malhotra on 01/27/2020. A stent was placed for significant ureteral edema at the left UV junction. Pt's creatinine increased from 2 to 4.1 and nephrology was consulted on 01/28/2020. She underwent acute hemodialysis on 01/31/2020 with temporary catheter placement in her right internal jugular vein. Pt again reported that she has been urin ating without dysuria, retention, or hematuria. Denies fever, chills, flank pain, or new back pain other than her chronic back pain in the sacral region. OBJECTIVE PHYSICAL EXAMINATION: VITAL SIGNS: Please see below. GENERAL APPEARANCE: Alert and awake, not in acute distress HEENT: Head normocephalic, atraumatic, b/l pupil equal and round. Mild ecchymosis in right neck lateral aspect RESPIRATORY: CTA b/l, no rales, wheezing, or rhonchi CARDIOVASCULAR: RRR, normal S1 and S2, no murmur but difficult to aus d/t body habitus ABDOMEN: Soft, no guarding, no abdominal pain. EXTREMITIES: No Kristie's sign b/l. NEUROLOGICAL: Memory and cognitive function grossly stable. PSYCHIATRIC: Mood appro to situation LABORATORY DATA, IMAGING STUDIES, MICROBIOLOGY: Please see below. Echocardiogram: high central venous pressure and at least moderate and possibly moderate to severe pulmonary hypertension. ASSESSMENT AND PLAN: Pt is a 44 yo female with hx of recurrent UTI, lithotripsy, and morbid obesity s/p gastric bypass surgery admitted on 01/27/2020 due to hematuria and dysuria for two days as well as fever. Pt had UTI with left UVJ stone, left mod. hydronephrosis and underwent cystoscopy and left ureteroscopy stent placement Nephrology was consulted as pt has TANYA on CKD and pty underwent 3 hemodialysis. PROBLEMS: 1. TANYA on CKD: renal ultrasound done due to persistent and worsening acute renal failure, which showed only focal defect or scar in the upper right kidney which is old. Underlying chronic kidney disease due to prior kidney stones. Urine cx neg. 01/31/2020 2nd hemodialysis due to worsening kidney function, metabolic acidosis and hyperkalemia. 02/03/2020 3rd dialysis after permacath placement 02/03/2020. Nephrology planned further outpt; social service consulted; pending dialysis chair offering. 2. Hypertension. Not on HTN meds at home. HTN urgency resolved s/p clonidine and amlodipine. Cont amlodipine 10mg BID 3. Metabolic acidosis, d/t TANYA. S/p bicarb iv gtt. Repeat VBG showed metabolic acidosis resolved 4. Left-sided hydronephrosis. Stent in her left kidney and hydronephrosis has resolved. GFR and creatinine roughly unchanged. Nephrology plan outpt dialysis after pt gets a dialysis chair offer. . 5. Left UVJ stone,status post cystoscopy, left stent placement, passed prior to stent placement. 6. Hypoxia, resolved. CT chest and V/Q scan neg upon admission. It was noted that prior discussion with Dr. Srinivasan was made, who has reviewed her CT chest on admission. Pt currently sat at 90% on RA. Echo 01/30/2020 showed high central venous pressure and at least moderate and possibly moderate to severe pulmonary hypertension. LATASHA neg. Pt already on amlodipine and denies any dyspnea, cough, or wheezing. May also have a component of restrictive lung dz d/t pt body habitus. Albuterol PRN. 7. Morbid obesity. BMI of 44. History of gastric bypass surgery 8. Hypercholesterolemia. Continue home statin. 9. Right kidney injury. Ultrasound revealed focal parenchymal defect/scar in the upper right kidney. Nephrology plan possible outpatient renal nuclear scan to assess the kidney function Contact: Pt's Mark . DISPOSITION: TANYA on CKD. S/p permacath placement 02/03/2020 and 3 dialysis inpt. Pending dialysis chair offer; planned outpt dialysis with nephrology in the future. DVT prophylaxis: SCD GI prophylaxis: Pepcid Attending attestation: I evaluated and examined the patient in person; I discussed the care with Resident in detail and agree with the plan above. VS, I&O, 24H, Fishbone Vital Signs/I&O Vital Signs Date Time Temp Pulse Resp B/P (MAP) Pulse Ox O2 Delivery O2 Flow Rate FiO2 02/03/20 13:49 92 18 93 Room Air 02/03/20 13:41 2 02/03/20 11:55 97.6 02/03/20 08:40 140/88 I&O- Last 24 Hours up to 6 AM 02/03/20 06:00 Intake Total 1800 ml Output Total 2500 ml Balance -700 ml Laboratory Data 24H LABS Laboratory Tests 2 02/03/20 05:38: Immature Granulocyte % (Auto) 1.7, Neutrophils (%) (Auto) 58.8, Lymphocytes (%) (Auto) 26.3, Monocytes (%) (Auto) 8.5H, Eosinophils (%) (Auto) 4.1H, Basophils (%) (Auto) 0.6, Neutrophils # (Auto) 4.7, Lymphocytes # (Auto) 2.1, Monocytes # (Auto) 0.7, Eosinophils # (Auto) 0.3, Basophils # (Auto) 0.1, Nucleated Red Blood Cells % (auto) 0.5H, Anion Gap 6L, Glomerular Filtration Rate 9.3L, Calcium Level 8.6 CBC/BMP Laboratory Tests 02/03/20 05:38 Microbiology Microbiology 01/27/20 Urine Culture - Final, Complete STANLEY HOWE DO Feb 03, 2020 16:47 NEVAEH GONZALEZ MD Feb 08, 2020 08:21
--- NOTE | 2020-02-03 17:53 | IPN ---
DATE: 02/03/2020 Ms. Browne is seen and examined this morning during bedside rounds. She states she is feeling a little bit better. She would like to know when she can go home. Her BUN and creatinine levels actually went up despite having dialysis 2 days prior. She continues to deny any symptoms. She continues to autodiurese very well overnight. She denies any abdominal pain, fevers, chills, night sweats. She continues to have chronic back pain, but nothing new from baseline. No overnight events were reported by nursing. PHYSICAL EXAMINATION: VITAL SIGNS: Temperature 97.3, pulse 98, respirations 17, blood pressure 138/88 (105), pulse oximetry 94% on room air. Intake total: 1800 mL, output total 2300 mL with balance of -500 mL. There is no weight recorded today. This is a very pleasant, obese 44-year-old female, sitting up in bed. Does not appear in acute distress. HEENT: Atraumatic, normocephalic. Right internal jugular (IJ) evaluated and has slight erythematous rash around where tape was but nonpruritic. Minimal raised lesions. No blistering noted. No tenderness to palpation. HEART: Sounds regular rate and rhythm. No audible murmurs, rubs, or gallops. LUNGS: Sound clear to auscultate bilaterally. No audible wheezing, rhonchi, or rales. ABDOMEN: Positive bowel sounds in all four quadrants. Obese abdomen. Nontender to palpation. LOWER EXTREMITIES: No lower extremity edema or calf tenderness. LABORATORY DATA: Hematology: WBC 8.0, hemoglobin 9.9, hematocrit 31.5, platelets 288. Chemistry: Sodium 144, potassium 4.4, chloride 104, carbon dioxide 32, anion gap 6, BUN 23, creatinine 5.37, fasting glucose 85. No new imaging. ASSESSMENT AND PLAN: 1. Acute renal failure superimposed on chronic kidney disease. Her BUN and creatinine returned to be elevated this morning with a creatinine of at least 5. Patient will have a Perm-A-Cath placement this afternoon and will have dialysis again prior to being discharged today. She will need to have outpatient dialysis set up, which has been tentatively planned for this Saturday, but we will need to followup prior to her being discharged. She will followup with nephrology clinic in the next 2-3 weeks as well. I predict that she will need dialysis for at least 2 weeks prior to her kidney function improving. 2. Hypertension. Blood pressure this morning is pretty stable today at 140/88. Continue with amlodipine 10 mg. Will be discharged on this. 3. Metabolic acidosis, resolved. 4. Hyperkalemia, resolved. 5. Left-sided hydronephrosis, status post stent placement in the left ureter. 6. Right kidney injury. Ultrasound shows focal parenchymal defect/scar on the upper right kidney. Once kidney function has resolved, outpatient can consider renal nuclear scan to assess kidney function, but this will be followed up by nephrology.
[2020-02-03] MEDS: ATORVASTATIN 10 MG TAB PO SCH (20:58)
[2020-02-03 22:00] VITALS: BP 142/68
[2020-02-04] MEDS ORDERED: MORPHINE 4 MG/ML 1ML VIAL/SYRINGE (J2270) IV ONE (01:30)
[2020-02-04] MEDS ORDERED: PERCOCET 5MG/325MG TAB PO ONE (02:00)
[2020-02-04 06:00] VITALS: BP 146/83
[2020-02-04 08:15] LABS: CREATININE FOR GFR 3.7 MG/DL (0.55-1.30); GLOMERULAR FILTRATION RATE 14.2 (>58); PHOSPHORUS LEVEL 2.5 MG/DL (2.5-4.9); POTASSIUM SERUM 3.8 MEQ/L (3.5-5.1)
[2020-02-04] MEDS: FAMOTIDINE 20 MG TAB PO SCH (08:26)
[2020-02-04] MEDS: PHENAZOPYRIDINE 100 MG TAB PO SCH ×3 (08:26→20:19)
[2020-02-04] MEDS: LACTOBACILLUS ACIDOPHILUS CAP (BACID) PO SCH ×2 (08:26→17:00)
[2020-02-04] MEDS: amLODIPine 10 MG TAB PO SCH (08:26)
[2020-02-04] MEDS: SERTRALINE 100 MG TAB PO SCH (08:26)
[2020-02-04] MEDS: PERCOCET 5MG/325MG TAB PO PRN ×3 (08:27→20:38)
[2020-02-04] MEDS ORDERED: OXYB5TAB10 PO (10:22)
[2020-02-04] MEDS ORDERED: PERCOCET PO (10:40)
--- NOTE | 2020-02-04 11:16 | RO ---
DATE OF PROCEDURE: 01/27/2020 PREPROCEDURE DIAGNOSIS: Obstructing left ureteral stone. POSTPROCEDURE DIAGNOSIS: Obstructing left ureteral stone. PROCEDURES: Cystoscopy, left ureteroscopy, left retrograde pyelogram with intraoperative interpretation of images, left ureteral stent placement. SURGEON: Kuldip Malhotra MD JOINT CUTTER MACHINE: None. ANESTHESIA: Spinal. OPERATIVE INDICATIONS: This is a 44-year-old female who presented to the hospital with an obstructing 5-mm left ureterovesical junction and acute kidney injury. When her laboratories were checked again later in the day, her creatinine had worsened, and she continued to have left flank pain. Due to the worsening of her kidney function, a decision was made to bring her to the operating room to remove the stone. DESCRIPTION OF PROCEDURE: The patient was brought to the operating room, and spinal anesthesia was administered. Prophylactic antibiotics were infused earlier in the day. She was then prepped and draped in the usual sterile fashion in the dorsal lithotomy position. At this point, a rigid cystoscope was inserted into the urethral meatus and advanced into the bladder. The guidewire was advanced up the left collecting system. I then went up the left collecting system with a short semirigid ureteroscope; and of note, no stone was seen in the distal ureter. I then examined the more proximal ureter, and still no stone was seen. After I examined the more proximal ureter and no stones were seen, a retrograde pyelogram was performed. It was notable for moderate left hydroureteronephrosis with no extravasation. I then withdrew the ureteroscope and confirmed there were no stones in the ureter. It is indicated the stone already passed. I then utilized the wire to advance a 6-Syriac x 22-32-cm double J ureteral stent into the left collecting system. The wire was removed, and there were adequate curls of the stent in the left renal pelvis and in the bladder. I then placed a 16-Syriac Tillman catheter, and the balloon was filled with 10 mL of sterile water. The catheter was connected to gravity drainage, and this marked the conclusion of the procedure. The patient was then taken out of the dorsal lithotomy position, awakened from anesthesia, and transported to the recovery room in stable condition. ESTIMATED BLOOD LOSS: 5 mL. COMPLICATIONS: None. SPECIMENS: None. PLAN: Will monitor until the patient's kidney function improves. If it does in the morning we will take the catheter out and then will have her followup in the clinic in a few weeks for stent removal.
--- NOTE | 2020-02-04 13:28 | REP ---
IR Permcath placement. IR Ultrasound of the right neck. IR Permcath insertion under fluoroscopy and ultrasound guidance. Clinical information: Renal failure. Needs dialysis. Physician: Dr. Hayes. Procedure: The patient was advised of the benefits, risks and alternatives of the procedure and informed consent was obtained. The time-out was performed with verification of the patient's name, MRN, site of procedure and type of procedure to be performed. The patient was positioned in the supine position on the angiographic table. The site was prepped and draped in the usual sterile fashion. Moderate sedation was not performed. The physician spent 45 minutes of continuous face to face time with the patient. Ultrasound of the right neck reveals a patent and compressible right internal jugular vein. A printer technician radiograph reveals no gross abnormality. The neck and anterior chest wall were anesthetized with lidocaine. The right internal jugular vein was accessed under ultrasound guidance, using a micro introducer needle, via a lateral approach. An 018 cope wire was advanced into the inferior vena cava. Incision at the internal jugular access site and anterior chest wall were made using a scalpel. The needle was removed and the tract was serially dilated under fluoroscopy guidance. A peel away sheath was advanced over the wire under fluoroscopy guidance into the Superior vena cava. The catheter was inserted through the subcutaneous tissues of the chest wall with a tunneling device. The catheter was then advanced through the peel-away sheath under fluoroscopy guidance to the right atrium. The peel-away sheath was removed. The catheter was positioned with the tip in the right atrium. The puncture site was closed. The catheter was secured in place using 2-0 Prolene. Both sites were cleansed and sterile dressings applied. At the conclusion of the procedure, the ports of the catheter aspirate and flush freely. The catheter was locked with high-dose heparin. The patient tolerated the procedure well and was returned to the PRU in stable condition. EBL: < 5 ml. Complications: None. Conclusion: Successful placement of right sided Glidepath Permcath for dialysis. The catheter is ready for immediate use. Thank you this referral. Electronically Signed by Ashlee Hayes MD 02/04/2020 01:27 P
[2020-02-04 14:00] VITALS: BP 148/96
[2020-02-04 14:23] VITALS: O2SAT 91
--- NOTE | 2020-02-04 16:36 | IPN ---
DATE: 02/04/2020 Mrs. Browne is seen this morning on her bedside. She had a new Perma-Cath placed yesterday and then she had her dialysis in the afternoon. Unfortunately her kidney function has not shown any improvement despite good urine output for last several days. The patient denies any nausea, vomiting, dyspnea or chest pain. She does have chronic back pain and has been taking Percocet. PHYSICAL EXAMINATION: Temperature 98.3 degrees Fahrenheit, heart rate 100 per minute and respiratory rate 18 per minute. Blood pressure 148/90 mmHg and oxygen saturation 92% on room air. Head is atraumatic. Neck supple and without JVD or thyroid enlargement. Perma-Cath on right upper chest is without any bleeding or signs of infection. Heart sounds are tachycardiac and lungs sound clear to auscultation. Abdomen soft, obese and nontender and bowel sounds are normal. Extremities without any cyanosis or clubbing. Neurologically she is awake, alert and oriented times three. Today's labs show a BUN of 14 and creatinine 3.7. Electrolytes are all within normal range. PROBLEMS: 1. Acute renal failure superimposed on chronic kidney disease. The patient has nonoliguric acute renal failure. However unfortunately her kidney function has not improved despite good urine output. She continues to require dialysis and was dialyzed yesterday. She is already scheduled for outpatient dialysis on Saturday morning and is likely to be discharged to home today. 2. Anemia. Her anemia has been stable and at this point does not need any urgent intervention. This will be monitored and managed with dialysis. 3. Kidney stone, status post left ureteral stent placement. The patient had already passed the stone prior to procedure however stent was placed due to edema in the urethra. Unfortunately, her kidney function has still not improved even though her hydronephrosis has completely resolved on a followup renal ultrasound. We will continue to monitor her kidney function has an outpatient. 4. Disposition. From renal standpoint, the patient can be discharged to home today and followup in the outpatient dialysis clinic on Saturday. 5. Back pain. The patient has chronic back pain and has been taking Percocet. She will discuss with hospitalist for prescription for Percocet.
--- NOTE | 2020-02-04 18:43 | DS.PDOC ---
Discharge Summary General Date of Admission January 27, 2020 at 07:42 Date of Discharge 02/04/2020 Discharge Summary ADDENDUM 02/06/2020: Pt was discharged 02/04/2020 but is still in the hospital as her insurance has not approved her dialysis chair. Pt's PCP from [facility] sent in the order for pt's outpt dialysis chair but is still pending insurance approval. Discussed with Dr. Santana as above; plan dialysis Saturday02/08/2020 if pt's insurance still has not approved the dialysis by that time. Pt's physical exam essentially unchanged and continue to voice no symptoms. PROCEDURES PERFORMED DURING STAY: 01/27/2020 Cystoscopy, left ureteroscopy, left retrograde pyelogram with intraoperative interpretation of images, and left ureteral stent placement 01/30/2020 Right IJ temporary catheter placement in her right internal jugular vein, s/p removal 02/03/2020 right permacath placement Dialysis with temporary catheter and permacath ADMITTING DIAGNOSES: 1. Obol-nn-xptlrypf left-sided hydroureteronephrosis secondary to obstructive kidney stone with acute kidney injury and obstructive uropathy, probable urinary tract infection. 2. Acute kidney injury secondary to obstructed kidney stone with hydronephrosi s. 3. Metabolic acidosis, most likely secondary to kidney stone. 4. Hypoxia, most likely due to obesity hypoventilation with untreated obstructive sleep apnea or atelectasis 5. The patient's CT chest has no pneumonia or fluid, pleural effusion, or pulmonary edema. Will obtain a V/Q scan to rule out pulmonary embolism due to tachycardia and hypoxia. 6. Sepsis secondary to urinary tract infection. 7. Morbid obesity. BMI of 42.8. 8. Reflux 9. Hypercholesterolemia DISCHARGE DIAGNOSES: 1. TANYA on CKD, underlying chronic kidney disease due to prior kidney stones and scaring. Urine cx neg. 01/31/2020 2nd hemodialysis due to worsening kidney function, metabolic acidosis and hyperkalemia. 02/03/2020 3rd dialysis after per macath placement 02/03/2020. Nephrology planned further outpt; social service consulted; pending dialysis chair offering. 2. Hypertension 3. Metabolic acidosis, d/t TANYA, resolved. 4. Left-sided hydronephrosis. 5. Left UVJ stone, status post cystoscopy, left stent placement, passed prior to stent placement. 6. Morbid obesity. BMI of 44. History of gastric bypass surgery 7. Hypercholesterolemia. Continue home statin. 8. Right kidney injury. Ultrasound revealed focal parenchymal defect/scar in the upper right kidney COMPLICATIONS/CHIEF COMPLAINT: Acute Kidney Injury,Metabolic Acidosis,Ureterolith. HISTORY OF PRESENT ILLNESS: his is a 44 yo female with a pertinent PMH of recurrent UTI, kidney stones, hyperlipidemia and GERD who presented to the emergency room for urinary frequency, dysuria, and left flank pain for at least few days prior to admission, and she has had a low grade fever with no improvement of radiating left-sided pain that she rated as 8/10. HOSPITAL COURSE: She was admitted the evening of 01/27/2020 for mild to moderate left-sided hydroureteronephrosis secondary to obstructive kidney stone s/p cystoscopy, left ureteroscopy and left ureteral stent placement by Dr. Malhotra on 01/27/2020. A stent was placed for significant ureteral edema at the left UV junction. She was noted to have HTN urgency resolved s/p clonidine and amlodipine. She was also noted to have metabolic acidosis which was likely d/t TANYA, resolved s/p bicarb iv gttPt's creatinine increased from 2 to 4.1 and nephrology was consulted on 01/28/2020. She underwent acute hemodialysis on 01/31/2020 with temporary catheter placement in her right internal jugular vein. Pt subsequently was determined that future dialysis is likely required and underwent permacath placement 02/03/2020 with dialysis after placement. On the day of discharge, pt reported that she has been urinating without dysuria, retention, or hematuria. Denies fever, chills, flank pain, or new back pain othe r than her chronic back pain in the sacral region which has improved compared to yesterday. DISCHARGE MEDICATIONS: Please see below. ALLERGIES: Please see below. PHYSICAL EXAMINATION ON DISCHARGE: VITAL SIGNS: Please see below. GENERAL APPEARANCE: Alert and awake, not in acute distress HEENT: Head normocephalic, atraumatic, b/l pupil equal and round. Mild ecchymosis in right neck lateral aspect. Right permacath in place RESPIRATORY: CTA b/l, no rales, wheezing, or rhonchi CARDIOVASCULAR: RRR, normal S1 and S2, no murmur but difficult to aus d/t body habitus ABDOMEN: Soft, no guarding, no abdominal pain. EXTREMITIES: No Kristie's sign b/l. NEUROLOGICAL: Memory and cognitive function grossly stable. PSYCHIATRIC: Mood appro to situation LABORATORY DATA: Please see below. PROGNOSIS: [Fair] ACTIVITY: [As tolerated]. DIET: [2g Na diet] DISCHARGE PLAN AND INSTRUCTIONS: 1. Please follow up with county demonstrator and urology as scheduled 2. Follow up with PCP in 1 wk ITEMS TO FOLLOWUP ON ON OUTPATIENT: 1. TANYA on CKD 2. Dialysis 3. Left ureteral stent DISCHARGE CONDITION: [Stable]. TIME SPENT ON DISCHARGE: Greater than [37] minutes. Attending attestation: I evaluated and examined the patient in person; I discussed the care with Resident in detail and agree with the plan above. Vital Signs/I&Os Vital Signs Date Time Temp Pulse Resp B/P (MAP) Pulse Ox O2 Delivery O2 Flow Rate FiO2 02/04/20 15:09 19 91 Room Air 02/04/20 14:22 89 02/04/20 14:00 99.2 148/96 (113) 02/03/20 13:41 2 I&O- Last 24 Hours up to 6 AM 02/04/20 06:00 Intake Total 560 ml Output Total 2400 ml Balance -1840 ml Laboratory Data Labs 24H Laboratory Tests 2 02/04/20 07:30: Anion Gap 7L, Glomerular Filtration Rate 14.2L, Calcium Level 9.0, Phosphorus Level 2.5, Albumin 3.0L CBC/BMP Laboratory Tests 02/04/20 07:30 Microbiology Microbiology 01/27/20 Urine Culture - Final, Complete Discharge Medications Scheduled Atorvastatin Calcium (Lipitor) 10 Mg Tablet, 10 MG PO QHS, (Reported) Famotidine (Pepcid) 20 Mg Tablet, 20 MG PO BID, (Reported) Levonorgestrel (Mirena) 1 Each Iud, 20 MCG IU ASDIRECTED, (Reported) Meloxicam (Mobic) 7.5 Mg Tablet, 7.5 MG PO DAILY, (Reported) Sertraline Hcl (Zoloft) 100 Mg Tablet, 200 MG PO DAILY, (Reported) Scheduled PRN Oxybutynin Chloride (Oxybutynin Chloride) 5 Mg Tablet, 5 MG PO TIDP PRN for BLADDER SPASM Oxycodone/Acetaminophen (Oxycodone-Acetaminophen 5-325) 1 Each Tablet, 1 TAB PO Q6HP PRN for MILD/MODERATE PAIN (PS 1-7) Phenazopyridine HCl (Azo Urinary Pain Relief) 95 Mg Tablet, 95 MG PO TID PRN for PAIN OR DISCOMFORT, (Reported) Allergies Coded Allergies: No Known Drug Allergies (Verified Allergy, Unknown, 09/02/19) STANLEY HOWE DO Feb 04, 2020 18:43 NEVAEH GONZALEZ MD Feb 08, 2020 08:25
[2020-02-04] MEDS: ATORVASTATIN 10 MG TAB PO SCH (20:19)
[2020-02-04 20:57] VITALS: O2SAT 93
[2020-02-04 22:00] VITALS: BP 143/74
[2020-02-05] MEDS: PHENAZOPYRIDINE 100 MG TAB PO SCH ×3 (05:49→20:42)
[2020-02-05] MEDS: FAMOTIDINE 20 MG TAB PO SCH (05:50)
[2020-02-05] MEDS: SERTRALINE 100 MG TAB PO SCH (05:50)
[2020-02-05] MEDS: amLODIPine 10 MG TAB PO SCH (05:50)
[2020-02-05 06:00] VITALS: BP 141/89
[2020-02-05 06:08] LABS: CITRATE 24HR URINE 25 mg/24 hr (320-1240); CITRATE TOTAL URINE 18 mg/L (Undefined); OXALATE 24HR URINE 15 mg/24 hr (4-31); OXALATE TOTAL URINE 11 mg/L (Undefined)
[2020-02-05 06:10] LABS: HEMATOCRIT 31.4 % (36.0-47.0); HEMOGLOBIN 9.7 g/dl (12.0-15.5); MEAN CORPUSCULAR HEMOGLOBIN 31.2 pg (27.0-33.0); MEAN CORPUSCULAR HGB CONC 30.9 g/dl (32.0-36.5); PLATELET COUNT, AUTOMATED 285 10^3/uL (150-450); RED BLOOD COUNT 3.11 10^6/uL (4.00-5.40)
[2020-02-05 06:37] LABS: CALCIUM LEVEL 8.9 MG/DL (8.5-10.1); CREATININE FOR GFR 4.24 MG/DL (0.55-1.30); GLOMERULAR FILTRATION RATE 12.2 (>58); POTASSIUM SERUM 4.4 MEQ/L (3.5-5.1)
[2020-02-05] MEDS: PERCOCET 5MG/325MG TAB PO PRN ×3 (07:56→20:43)
[2020-02-05] MEDS: LACTOBACILLUS ACIDOPHILUS CAP (BACID) PO SCH ×2 (07:56→17:11)
[2020-02-05 12:10] VITALS: BP 116/68
[2020-02-05 14:00] VITALS: BP 144/64
[2020-02-05] MEDS: ATORVASTATIN 10 MG TAB PO SCH (20:42)
[2020-02-05 21:00] VITALS: O2SAT 91
[2020-02-05] MEDS ORDERED: zolPIDEM TARTRATE 5 MG TAB PO ONE (21:45)
[2020-02-05 22:00] VITALS: BP 162/94
[2020-02-06 02:30] VITALS: BP 128/84
[2020-02-06 06:00] VITALS: BP 142/60
[2020-02-06] MEDS ORDERED: diphenhydrAMINE CREAM 30GM TOP PRN (06:45)
[2020-02-06] MEDS: PERCOCET 5MG/325MG TAB PO PRN ×3 (06:52→20:23)
[2020-02-06 07:16] LABS: HEMATOCRIT 33.2 % (36.0-47.0); MEAN CORPUSCULAR HEMOGLOBIN 30.9 pg (27.0-33.0); MEAN CORPUSCULAR HGB CONC 30.1 g/dl (32.0-36.5); MEAN CORPUSCULAR VOLUME 102.5 fl (80.0-96.0); PLATELET COUNT, AUTOMATED 270 10^3/uL (150-450); RED BLOOD COUNT 3.24 10^6/uL (4.00-5.40); WHITE BLOOD COUNT 7.9 10^3/uL (4.0-10.0)
[2020-02-06 07:43] LABS: CALCIUM LEVEL 8.9 MG/DL (8.5-10.1); CREATININE FOR GFR 3.26 MG/DL (0.55-1.30); GLOMERULAR FILTRATION RATE 16.5 (>58); POTASSIUM SERUM 4.3 MEQ/L (3.5-5.1)
[2020-02-06] MEDS: FAMOTIDINE 20 MG TAB PO SCH (09:50)
[2020-02-06] MEDS: SERTRALINE 100 MG TAB PO SCH (09:50)
[2020-02-06] MEDS: LACTOBACILLUS ACIDOPHILUS CAP (BACID) PO SCH ×2 (09:50→17:31)
[2020-02-06] MEDS: PHENAZOPYRIDINE 100 MG TAB PO SCH ×3 (09:50→20:23)
[2020-02-06] MEDS: amLODIPine 10 MG TAB PO SCH (09:55)
[2020-02-06] MEDS: ONDANSETRON 4 MG ORAL DISINTEGRATING TAB PO PRN (10:12)
--- NOTE | 2020-02-06 12:57 | IPN ---
DATE OF VISIT: 02/06/2020 Mrs. Browne is seen this morning on her bedside. She had hemodialysis yesterday again, which she tolerated well. Unfortunately, her kidney function has not improved as yet and she remains dialysis dependent. There was a plan for her discharge and outpatient dialysis. However, due to insurance issues, she could not be discharged. She is feeling well and denies any complaints this morning. On physical exam, temperature 99 degrees Fahrenheit, heart rate 110 per minute and respiratory rate 18 per minute. Blood pressure 148/82 mmHg and oxygen saturation 97% on room air. Head is atraumatic. Neck supple and without jugular venous distention (JVD) or thyroid enlargement. PermaCath is present in right internal jugular vein. Heart sounds are tachycardiac but regular. Lungs sound clear to auscultation. Abdomen soft and nontender and without any palpable organomegaly. Bowel sounds are normal. Extremities without any cyanosis or clubbing. Neurologically, she is awake, alert and oriented times three. Today's labs show WBC count 7.9, hemoglobin 10.0 and hematocrit 33.2. Platelets 270. Sodium 141, potassium 4.3, CO2 31, BUN 20 and creatinine 3.26. Glucose 102 and calcium 8.9. PROBLEMS: 1. Acute renal failure. Kidney function has not improved and she remains dialysis dependent. She still has good urine output. We did not remove any fluid with dialysis yesterday. Her renal function will be checked again on Saturday. There is no emergent need for dialysis over the weekend now. Electrolytes are within normal range and volume status is well-compensated. 2. Hypertension. Blood pressure seems to be well controlled and no changes are being made today. 3. Anemia. Her anemia is also stable and does not need any intervention at present.
[2020-02-06 14:00] VITALS: BP 147/102
[2020-02-06] MEDS: MICONAZOLE-7 VAGINAL 2% CREAM 47.7 GM PV SCH (17:31)
[2020-02-06] MEDS: ATORVASTATIN 10 MG TAB PO SCH (20:23)
[2020-02-06] MEDS ORDERED: diphenhydrAMINE 25MG CAP PO PRN (20:45)
[2020-02-06 21:00] VITALS: O2SAT 92
[2020-02-06 22:00] VITALS: BP 142/86
[2020-02-07] MEDS: PERCOCET 5MG/325MG TAB PO PRN ×3 (04:50→18:05)
[2020-02-07 06:00] VITALS: BP 138/92
[2020-02-07 06:26] LABS: HEMATOCRIT 29.7 % (36.0-47.0); HEMOGLOBIN 9.3 g/dl (12.0-15.5); MEAN CORPUSCULAR HEMOGLOBIN 31.7 pg (27.0-33.0); MEAN CORPUSCULAR HGB CONC 31.3 g/dl (32.0-36.5); MEAN CORPUSCULAR VOLUME 101.4 fl (80.0-96.0); PLATELET COUNT, AUTOMATED 298 10^3/uL (150-450); RED BLOOD COUNT 2.93 10^6/uL (4.00-5.40); WHITE BLOOD COUNT 9.4 10^3/uL (4.0-10.0)
[2020-02-07 06:49] LABS: CALCIUM LEVEL 8.6 MG/DL (8.5-10.1); CREATININE FOR GFR 3.5 MG/DL (0.55-1.30); GLOMERULAR FILTRATION RATE 15.2 (>58); POTASSIUM SERUM 3.9 MEQ/L (3.5-5.1)
[2020-02-07] MEDS: PHENAZOPYRIDINE 100 MG TAB PO SCH ×3 (08:10→20:22)
[2020-02-07] MEDS: SERTRALINE 100 MG TAB PO SCH (08:10)
[2020-02-07] MEDS: LACTOBACILLUS ACIDOPHILUS CAP (BACID) PO SCH ×2 (08:10→16:57)
[2020-02-07] MEDS: FAMOTIDINE 20 MG TAB PO SCH (08:10)
[2020-02-07] MEDS: amLODIPine 10 MG TAB PO SCH (08:13)
--- NOTE | 2020-02-07 10:48 | IPN ---
DATE: 02/05/2020 Ms. Browne was seen and examined this morning during bedside rounds at dialysis. She is feeling very well today. She has not gotten up yet, for she is waiting approval from her insurance. Possibly today she will be discharged. She really has no complaints today. She would like to know when she can go home. She denies any fevers, chills, abdominal pain, chest pain, shortness of breath, or trouble breathing. She continues to have the chronic back pain, which is currently tolerable. She is tolerating dialysis with no problems. PHYSICAL EXAMINATION: VITAL SIGNS: Temperature 99.1, pulse 102, respirations 17, blood pressure 141/89 (106), pulse oximetry 91% on room air. Intake total 1520, output total 1750 mL with a net balance of -230 mL. No weight was recorded. GENERAL: This is a very pleasant 44-year-old obese female, lying comfortably in the bed in the dialysis unit. Does not appear to be in acute distress. Alert and oriented times three. HEENT: Atraumatic, normocephalic. Right chest wall Perm-A-Cath in place, sutured in place with no discharge, tenderness to palpation. Old right internal jugular (IJ) site healing appropriately. Still has an erythematous rash that is nonpruritic. HEART: Tachycardic rate and rhythm. No audible murmurs, rubs, or gallops. LUNGS: Clear to auscultate bilaterally. No audible wheezing, rhonchi, rales. ABDOMEN: Morbidly obese abdomen with positive bowel sounds in all four quadrants. EXTREMITIES: No lower extremity edema. No pitting edema. No calf tenderness. LABORATORY DATA: Hematology: WBC 8.0, hemoglobin 9.7, hematocrit 31.4, platelets 285. Chemistry: Sodium 143, potassium 4.4, chloride 105, carbon dioxide 30, anion gap 8, BUN 25, creatinine 4.24, GFR 12.2, fasting glucose 90, calcium 8.9. A 24-hour urine: Phosphorus 39.2, uric acid 85.4, calcium 24 under 5, oxalate 2415, citrate 2420. No new imaging. ASSESSMENT AND PLAN: 1. Acute renal failure superimposed on chronic kidney disease. She is currently nonoliguric acute renal failure. Unfortunately, kidney function continues not to improve despite good urine output. She will require dialysis outpatient at this current time. We are awaiting approval from insurance so she can be discharged to start her dialysis on Saturday, Saturday, Saturday. I predict she will need dialysis for another week or two before her kidney function improves. 2. Anemia. Stable. No urgent intervention. Continue to monitor. 3. Kidney stones, status post left urethral stent placement. She passed a stone prior to the procedure; however, stent was placed due to edema in the urethra. Unfortunately, the kidney function did not improve, even though hydronephrosis was completely resolved on the followup renal ultrasound. We will need to monitor her kidney function with continued dialysis. Once back to baseline, will need to consider a nuclear medicine renal flow to assess the kidney function. DISPOSITION: Patient can be discharged once insurance approval for dialysis has come.
--- NOTE | 2020-02-07 11:42 | IPNPDOC ---
Date Seen The patient was seen on 02/07/20. Progress Note Patient unable to be discharged due to insurance coverage for outpatient hemodialysis, likely discharge tomorrow. Patient asymptomatic and comfortable, no complaints, no hemodialysis today. VS, I&O, 24H, Fishbone Vital Signs/I&O Vital Signs Date Time Temp Pulse Resp B/P (MAP) Pulse Ox O2 Delivery O2 Flow Rate FiO2 02/07/20 11:02 18 02/07/20 08:13 113 146/84 02/07/20 06:00 96.0 93 Room Air 02/03/20 13:41 2 I&O- Last 24 Hours up to 6 AM 02/07/20 06:00 Intake Total 2310 ml Output Total 2200 ml Balance 110 ml Laboratory Data 24H LABS Laboratory Tests 2 02/07/20 06:05: Nucleated Red Blood Cells % (auto) 0.0, Anion Gap 9, Glomerular Filtration Rate 15.2L, Calcium Level 8.6 CBC/BMP Laboratory Tests 02/07/20 06:05 NEVAEH GONZALEZ MD Feb 07, 2020 11:42
[2020-02-07 14:00] VITALS: BP 138/82
--- NOTE | 2020-02-07 14:04 | IPN ---
DATE OF VISIT: 02/07/2020 Mrs. Browne is seen this afternoon on her bedside. She is feeling well and denies any complaints. She has been ambulating in the hallway. She denies any dyspnea or chest pain. She was dialyzed on Saturday. Unfortunately, she could not be discharged due to lack of approval from her insurance for outpatient dialysis. On physical exam, temperature 96 degrees Fahrenheit, heart rate 112 per minute and respiratory rate 18 per minute. Blood pressure 138/92 mmHg and oxygen saturation 93% on room air. Head is atraumatic. Neck supple and without jugular venous distention (JVD) or thyroid enlargement. PermaCath in right upper chest is intact. Lungs clear to auscultation and heart sounds are regular and tachycardiac. Abdomen soft and nontender. Bowel sounds normal. Extremities without any cyanosis or clubbing. Neurologically, she is awake, alert and oriented times three. Today's labs show WBC count 9.4, hemoglobin 9.3 and hematocrit 29.7. Platelets 298. Sodium 139, potassium 3.9, CO2 23, BUN 26 and creatinine 3.5. Glucose 92 and calcium 8.6. PROBLEMS: 1. Acute renal failure. Patient is nonoliguric but kidney function still not improving. She was dialyzed yesterday and we will plan to dialyze her again tomorrow unless her kidney function improves. She has good urine output and I am optimistic that her kidney function is going to improve any day. 2. Anemia. Anemia is stable at present and does not need any urgent intervention. 3. Hypertension and tachycardia. Patient reports that tachycardia is chronic and unchanged. Her blood pressure is well controlled. She is on amlodipine 10 mg daily and I think that low-dose beta-kyra could be a good option for her in view of her tachycardia. I will start with Carvedilol 3.125 mg twice a day and see how she does.
[2020-02-07] MEDS: CARVedilol 3.125 MG TAB PO SCH ×2 (14:26→20:24)
[2020-02-07] MEDS: MICONAZOLE-7 VAGINAL 2% CREAM 47.7 GM PV SCH (20:22)
[2020-02-07] MEDS: ATORVASTATIN 10 MG TAB PO SCH (20:22)
[2020-02-07 21:00] VITALS: O2SAT 95
[2020-02-07 22:00] VITALS: BP 154/96
[2020-02-07] MEDS ORDERED: RAMELTEON 8 MG TAB (ROZEREM) PO PRN (22:45)
[2020-02-08] MEDS: PERCOCET 5MG/325MG TAB PO PRN ×2 (00:26→07:28)
[2020-02-08 06:00] VITALS: BP 140/78
[2020-02-08 06:05] LABS: HEMATOCRIT 29.2 % (36.0-47.0); HEMOGLOBIN 9.1 g/dl (12.0-15.5); MEAN CORPUSCULAR HEMOGLOBIN 31.8 pg (27.0-33.0); MEAN CORPUSCULAR HGB CONC 31.2 g/dl (32.0-36.5); MEAN CORPUSCULAR VOLUME 102.1 fl (80.0-96.0); PLATELET COUNT, AUTOMATED 295 10^3/uL (150-450); RED BLOOD COUNT 2.86 10^6/uL (4.00-5.40); WHITE BLOOD COUNT 8.8 10^3/uL (4.0-10.0)
[2020-02-08 06:35] LABS: CALCIUM LEVEL 8.4 MG/DL (8.5-10.1); CREATININE FOR GFR 3.01 MG/DL (0.55-1.30); GLOMERULAR FILTRATION RATE 18.1 (>58); POTASSIUM SERUM 4.2 MEQ/L (3.5-5.1)
[2020-02-08] MEDS: LACTOBACILLUS ACIDOPHILUS CAP (BACID) PO SCH (07:28)
[2020-02-08] MEDS: PHENAZOPYRIDINE 100 MG TAB PO SCH (07:39)
[2020-02-08] MEDS: SERTRALINE 100 MG TAB PO SCH (07:40)
[2020-02-08] MEDS: FAMOTIDINE 20 MG TAB PO SCH (07:40)
[2020-02-08 07:42] VITALS: BP 144/82
[2020-02-08] MEDS: amLODIPine 10 MG TAB PO SCH (07:42)
[2020-02-08] MEDS: CARVedilol 3.125 MG TAB PO SCH (07:42)
[2020-02-08] MEDS ORDERED: MICO7CR PV (11:58)
[2020-02-08] MEDS ORDERED: CARV3.12 PO (11:58)
[2020-02-08] MEDS ORDERED: AMLO10TA5 PO (12:15)
--- NOTE | 2020-02-08 18:55 | IPN ---
DATE: 02/08/2020 Mrs. Browne is seen this morning on her bedside. She is feeling well and denies any dyspnea, chest pain, nausea, vomiting, fever, or chills. Her dialysis was scheduled for this morning, but I cancelled it after noticing improvement in her serum creatinine. PHYSICAL EXAMINATION: Temperature 98.6 degrees Fahrenheit, heart rate 110 per minute, respiratory rate 18 per minute, blood pressure 144/82 mm of mercury, and oxygen saturation 92% on room air. Head is atraumatic. Neck is supple and without jugular venous distention (JVD) or thyroid enlargement. Right internal jugular vein Perm-A-Cath has been removed, and catheter site is dry. Pressure dressing is in place. Heart sounds are tachycardiac but regular. Lungs clear to auscultation. Abdomen is soft and nontender, and bowel sounds are normal. Extremities without any cyanosis or clubbing. Neurologically, she is awake, alert, and oriented times three. Today's labs show WBC count 8.8, hemoglobin 9.1, and hematocrit 29.2. Platelets 295. Sodium 141, potassium 4.2, CO2 of 29, BUN 27, and creatinine 3.0. Important to note that yesterday her serum creatinine was 3.5. PROBLEMS: 1. Acute renal failure. Kidney function has started to improve. No more dialysis needed, and Perm-A-Cath has already been removed. 2. Hypertension. The patient did not have hypertension prior to this hospitalization and reports that she was not taking any medication. Currently she is on amlodipine 10 mg daily, and Carvedilol 3.125 mg twice a day was added yesterday. I have advised her to continue with current antihypertensive medications until further followup in the office. 3. Anemia. Her anemia is stable and does not need any urgent intervention. It is likely to correct over the next few weeks, as her kidney function has started to improve. DISPOSITION: From a renal standpoint, the patient can be discharged to home today. She will followup in my clinic in 3-4 days.
== END 2020-02-08 12:35 | disposition home or self-care (01) | DRG 674 ==
LOC: M ED 01:25 → M ED INP 07:42 → ENRESERV 08:01 → M MSPAV 09:17
PROVIDERS: ADMIT General Practice; ATTEND Internal Medicine
PROC: 0T774DZ Dilation of Left Ureter with Intraluminal Device, Percutaneous Endoscopic Approach (ICD-10-PCS; 2020-01-27)
PROC: 0JH63XZ Insertion of Tunneled Vascular Access Device into Chest Subcutaneous Tissue and Fascia, Percutaneous Approach (ICD-10-PCS; principal; 2020-01-30)
PROC: 02HV33Z Insertion of Infusion Device into Superior Vena Cava, Percutaneous Approach (ICD-10-PCS; 2020-01-30)
DX: N17.9 Acute kidney failure, unspecified (principal); E87.2 Acidosis; Z68.41 Body mass index [BMI] 40.0-44.9, adult; N13.2 Hydronephrosis with renal and ureteral calculous obstruction; E87.5 Hyperkalemia; I10 Essential (primary) hypertension; E66.01 Morbid (severe) obesity due to excess calories; E78.00 Pure hypercholesterolemia, unspecified; K21.9 Gastro-esophageal reflux disease without esophagitis; I16.0 Hypertensive urgency; Z79.899 Other long term (current) drug therapy; N10 Acute pyelonephritis; G47.33 Obstructive sleep apnea (adult) (pediatric)

== ENCOUNTER → 2020-02-12 | Outpatient (REF) | payer OTHER ==
[~2020-02-12] MED LIST changes: +AMLO10TA5 PO; +AZO-95TA3 PO; +CARV3.12 PO; +HYDR-4570; +MELO15TA28; +METH1TAB40; +MICO7CR PV; +OXYB5TAB10 PO; +PERCOCET PO; +XANA1TAB2 PO
[2020-02-12 18:15] LABS: PERCENT SATURATION 49.4 % (13.2-45.0)
== END ==
LOC: M LAB REF 17:50
PROVIDERS: ATTEND Internal Medicine Nephrology
DX: D50.9 Iron deficiency anemia, unspecified (principal); N39.0 Urinary tract infection, site not specified

== ENCOUNTER 2020-02-13 12:14 | Emergency (ER) | payer OTHER ==
[~2020-02-13] VITALS: Ht 154.9 cm; Wt 100.7 kg
[~2020-02-13 12:14] MED LIST changes: -HYDR-4570; -MELO15TA28; -METH1TAB40; -XANA1TAB2 PO
[2020-02-13] MEDS ORDERED: METH1TAB40 (12:22)
[2020-02-13] MEDS ORDERED: HYDR-4570 (12:23)
[2020-02-13] MEDS ORDERED: MELO15TA28 (12:23)
[2020-02-13] MEDS ORDERED: ALPRAZolam 0.5 MG TAB PO ONE (12:45)
[2020-02-13 13:05] LABS: BASO % 0.4 % (0.0-1.0); EOS # 0.5 10^3/uL (0.0-0.5); EOS % 4.8 % (0.0-3.0); HEMOGLOBIN 9.2 g/dl (12.0-15.5); LYMPH # 2.6 10^3/uL (1.5-5.0); LYMPH % 26.7 % (24.0-44.0); MEAN CORPUSCULAR HEMOGLOBIN 32.2 pg (27.0-33.0); MEAN CORPUSCULAR HGB CONC 31.7 g/dl (32.0-36.5); MEAN CORPUSCULAR VOLUME 101.4 fl (80.0-96.0); MONO # 0.6 10^3/uL (0.0-0.8); MONO % 6.4 % (0.0-5.0); NEUTROPHILS # 5.9 10^3/uL (1.5-8.5); PLATELET COUNT, AUTOMATED 615 10^3/uL (150-450); RED BLOOD COUNT 2.86 10^6/uL (4.00-5.40); WHITE BLOOD COUNT 9.7 10^3/uL (4.0-10.0)
[2020-02-13 13:26] LABS: AMPHETAMINES LEVEL URINE NEGATIVE (NEGATIVE); BARBITURATES URINE NEGATIVE (NEGATIVE); BENZODIAZEPINES URINE NEGATIVE (NEGATIVE); CANNABINOIDS URINE NEGATIVE (NEGATIVE); COCAINE METABOLITE URINE NEGATIVE (NEGATIVE); METHADONE URINE NEGATIVE (NEGATIVE); OPIATES URINE NEGATIVE (NEGATIVE); PHENCYCLIDINE URINE NEGATIVE (NEGATIVE)
[2020-02-13 14:01] LABS: ACETAMINOPHEN LEVEL < 2.0 UG/ML (10.0-30.0); ALBUMIN 3.7 GM/DL (3.2-5.2); ALT/SGPT 19 U/L (12-78); BILIRUBIN,DIRECT 0.1 MG/DL (0.0-0.2); BILIRUBIN,TOTAL 0.7 MG/DL (0.2-1.0); BLOOD UREA NITROGEN 14 MG/DL (7-18); CALCIUM LEVEL 8.8 MG/DL (8.5-10.1); CARBON DIOXIDE LEVEL 20 MEQ/L (21-32); CHLORIDE LEVEL 113 MEQ/L (98-107); CPK CREATINE PHOSPHOKINASE 90 U/L (26-192); CREATININE FOR GFR 1.75 MG/DL (0.55-1.30); ETHYL ALCOHOL (ETHANOL) < 0.003 % (0.000-0.010); GLOMERULAR FILTRATION RATE 33.8 (>58); GLUCOSE, FASTING 84 MG/DL (70-100); SALICYLATE LEVEL 3.9 MG/DL (5.0-30.0); SODIUM LEVEL 141 MEQ/L (136-145)
[2020-02-13] MEDS ORDERED: XANA1TAB2 PO (14:33)
[2020-02-13 14:54] VITALS: BP 130/76
--- NOTE | 2020-02-14 16:03 | ECGEPIP ---
[facility] - ED Test Date: 2020-02-13 Pat Name: IMANI DINH Department: Room: - Gender: Female Clinical Pharmacy Specialist: VALERIA : [id number] Requested By: THEODORE CHAVEZ Order Number: [id number] Reading MD: Comfort Nuñez Measurements Intervals [place] Rate: 96 P: -13 CA: 136 QRS: 57 QRSD: 78 T: 29 QT: 371 QTc: 470 Interpretive Statements SINUS RHYTHM NONSPECIFIC T-WAVE ABNORMALITY SIMILAR 01/27/20 Electronically Signed on 02-14-2020 16:03:21 EDT by Comfort Nuñez
== END 2020-02-13 14:55 | disposition home or self-care (01) ==
LOC: M ED 12:14
DX: F43.0 Acute stress reaction (principal); E78.5 Hyperlipidemia, unspecified; K21.9 Gastro-esophageal reflux disease without esophagitis; Z79.899 Other long term (current) drug therapy; Z87.442 Personal history of urinary calculi; Z98.84 Bariatric surgery status
CPT/HCPCS: 80048; 80076; 80307; 82550; 84443; 85025; 93005; 99284; G0463; G0480

== ENCOUNTER → 2020-02-24 | Outpatient (REF) | payer OTHER ==
[~2020-02-24] MED LIST changes: -AMLO10TA5 PO; +AMLO1TAB25 PO; +ATIV1TAB10 PO; +CARV6.25 OR; +CEPH250T PO; +CIPR-249 PO; +HYDR-4570; +MELO15TA28; +METH1TAB40; +TRAZ-257 PO; +XANA1TAB2 PO
== END ==
LOC: M LAB REF 16:39
PROVIDERS: ATTEND Internal Medicine Nephrology
DX: N39.0 Urinary tract infection, site not specified (principal)

== ENCOUNTER 2020-03-04 09:19 | Emergency (ER) | payer OTHER ==
[~2020-03-04] VITALS: Ht 154.9 cm; Wt 95.0 kg
[~2020-03-04 09:19] MED LIST changes: +AMLO10TA5 PO; -AMLO1TAB25 PO; -ATIV1TAB10 PO; -CARV6.25 OR; -CEPH250T PO; -CIPR-249 PO; -TRAZ-257 PO
[2020-03-04] MEDS ORDERED: CARV6.25 OR (09:48)
[2020-03-04] MEDS ORDERED: NS 1,000 ML IV SCH (10:02)
[2020-03-04] MEDS ORDERED: NS 1,000 ML IV ONE (10:15)
--- NOTE | 2020-03-04 10:27 | REP ---
Clinical: Flank pain. Technique: Axial noncontrast images from the lung bases to the pubic symphysis with coronal and sagittal re-formations. Comparison: 01/27/2020. Findings: Liver, spleen, pancreas, gallbladder, and bilateral adrenal glands are normal. Right kidney demonstrates cortical scarring without hydroureternephrosis or perinephric stranding. Left kidney demonstrates mild scarring along with ureteral stent extending to the bladder and no perinephric stranding, nephrolithiasis or hydronephrosis. The enteric system demonstrates prior gastric bypass surgery and no evidence for acute obstruction or inflammatory process. Normal terminal ileum and appendix. Pelvis demonstrates collapsed bladder and age-appropriate uterus/adnexa with IUD in satisfactory position. No ascites. No free air. No adenopathy. Abdominal aorta without aneurysm. Musculoskeletal structures are intact. Lung bases are clear. Impression: 1. Chronic renal changes and left ureteral stent in satisfactory position. No acute urinary tract pathology appreciated. 2. No acute abdominopelvic pathology. Electronically Signed by Prince Talbert MD 03/04/2020 10:19 A
[2020-03-04] MEDS ORDERED: LORazepam 2 MG TAB PO STA (10:30)
[2020-03-04 10:43] LABS: BASO # 0.1 10^3/uL (0.0-0.2); EOS # 0.1 10^3/uL (0.0-0.5); EOS % 1.5 % (0.0-3.0); HEMATOCRIT 33.2 % (36.0-47.0); HEMOGLOBIN 10.5 g/dl (12.0-15.5); LYMPH % 24.5 % (24.0-44.0); MEAN CORPUSCULAR HEMOGLOBIN 32.1 pg (27.0-33.0); MEAN CORPUSCULAR HGB CONC 31.6 g/dl (32.0-36.5); MEAN CORPUSCULAR VOLUME 101.5 fl (80.0-96.0); MONO # 0.6 10^3/uL (0.0-0.8); MONO % 6.8 % (0.0-5.0); NEUTROPHILS # 5.4 10^3/uL (1.5-8.5); PLATELET COUNT, AUTOMATED 335 10^3/uL (150-450); RED BLOOD COUNT 3.27 10^6/uL (4.00-5.40); WHITE BLOOD COUNT 8.1 10^3/uL (4.0-10.0)
[2020-03-04 11:06] LABS: BILIRUBIN, URINE MANUAL OBSCURED (NEGATIVE); GLUCOSE, URINE (UA) MANUAL NEGATIVE (NEGATIVE); KETONE, URINE MANUAL NEGATIVE (NEGATIVE); UROBILINOGEN, URINE MANUAL OBSCURED mg/dl (NORMAL)
[2020-03-04 11:08] LABS: INR 1.11
[2020-03-04 11:15] LABS: BILIRUBIN,DIRECT 0.3 MG/DL (0.0-0.2); BILIRUBIN,TOTAL 0.6 MG/DL (0.2-1.0); TOTAL PROTEIN 7.5 GM/DL (6.4-8.2)
[2020-03-04 11:22] LABS: BACTERIA, URINE SMALL AMOUNT; HYALINE CAST, URINE NONE SEEN /lpf (0-1); RBC, URINE TNTC /hpf (0-3); SQUAMOUS EPITHELIAL CELL URINE MOD AMOUNT /hpf (SMALL AMT)
[2020-03-04] MEDS ORDERED: NORCO, ANEXSIA 5/325MG TABLET (HYDROcodone/ACETAMINOPHEN) PO ONE (11:30)
[2020-03-04 12:30] VITALS: BP 141/80
[2020-03-04] MEDS ORDERED: CEPH250T PO (12:42)
== END 2020-03-04 13:15 | disposition home or self-care (01) ==
LOC: M ED 09:19
DX: N18.9 Chronic kidney disease, unspecified (principal); I10 Essential (primary) hypertension; Z79.899 Other long term (current) drug therapy; Z96.0 Presence of urogenital implants

== ENCOUNTER → 2020-03-09 | Outpatient (REF) | payer OTHER ==
[~2020-03-09] MED LIST changes: -AMLO10TA5 PO; +AMLO1TAB25 PO; +ATIV1TAB10 PO; +CARV6.25 OR; +CEPH250T PO; +CIPR-249 PO; +TRAZ-257 PO
== END ==
LOC: M LAB REF 17:47
PROVIDERS: ATTEND Internal Medicine Nephrology
DX: N39.0 Urinary tract infection, site not specified (principal)

== ENCOUNTER 2020-05-02 12:41 | Emergency (ER) | payer OTHER ==
[~2020-05-02 12:41] MED LIST changes: -ATIV1TAB10 PO; -CIPR-249 PO; -TRAZ-257 PO
[2020-05-02 13:53] LABS: BASO # 0.1 10^3/uL (0.0-0.2); BASO % 0.8 % (0.0-1.0); EOS # 0.2 10^3/uL (0.0-0.5); EOS % 2.8 % (0.0-3.0); HEMATOCRIT 44.1 % (36.0-47.0); HEMOGLOBIN 14.6 g/dl (12.0-15.5); LYMPH # 2.1 10^3/uL (1.5-5.0); LYMPH % 27.9 % (24.0-44.0); MEAN CORPUSCULAR HEMOGLOBIN 30.5 pg (27.0-33.0); MEAN CORPUSCULAR HGB CONC 33.1 g/dl (32.0-36.5); MEAN CORPUSCULAR VOLUME 92.1 fl (80.0-96.0); MONO # 0.4 10^3/uL (0.0-0.8); MONO % 5.4 % (0.0-5.0); NEUTROPHILS # 4.8 10^3/uL (1.5-8.5); NEUTROPHILS % 62.8 % (36.0-66.0); PLATELET COUNT, AUTOMATED 368 10^3/uL (150-450); RED BLOOD COUNT 4.79 10^6/uL (4.00-5.40); WHITE BLOOD COUNT 7.6 10^3/uL (4.0-10.0)
[2020-05-02] MEDS ORDERED: TRAZ-257 PO (14:30)
[2020-05-02 14:53] LABS: ALBUMIN 3.9 GM/DL (3.2-5.2); ALT/SGPT 26 U/L (12-78); BILIRUBIN,DIRECT < 0.1 MG/DL (0.0-0.2); BILIRUBIN,TOTAL 0.6 MG/DL (0.2-1.0); BLOOD UREA NITROGEN 11 MG/DL (7-18); CALCIUM LEVEL 9.1 MG/DL (8.5-10.1); CARBON DIOXIDE LEVEL 19 MEQ/L (21-32); CHLORIDE LEVEL 112 MEQ/L (98-107); CREATININE FOR GFR 1.09 MG/DL (0.55-1.30); GLOMERULAR FILTRATION RATE 58.3 (>58); GLUCOSE, FASTING 105 MG/DL (70-100); POTASSIUM SERUM 4.4 MEQ/L (3.5-5.1); SODIUM LEVEL 139 MEQ/L (136-145); TOTAL PROTEIN 7.3 GM/DL (6.4-8.2)
[2020-05-02] MEDS ORDERED: ACETAMINOPHEN 325 MG TAB PO ONE (15:30)
[2020-05-02] MEDS ORDERED: CIPR-249 PO (16:29)
[2020-05-02] MEDS ORDERED: PYRI1TAB5 PO (16:29)
[2020-05-02] MEDS ORDERED: PHENAZOPYRIDINE 100 MG TAB PO ONE (16:30)
[2020-05-02] MEDS ORDERED: CIPROFLOXACIN 500MG TABLET PO ONE (16:30)
[2020-05-02 17:00] VITALS: BP 142/93
--- NOTE | 2020-05-27 15:06 | REP ---
PORTABLE CHEST X-RAY HISTORY: Shortness of breath. FINDINGS: Single frontal view of the chest was performed. Comparison made with prior study of 01/30/2020. There is no acute infiltrate or pulmonary edema. The heart is normal in size. The mediastinum was unremarkable and unchanged. IMPRESSION: No acute pulmonary disease. MTDD
== END 2020-05-02 17:04 | disposition home or self-care (01) ==
LOC: M ED 12:41 → EDBD 12:41 → M ED 17:04
DX: N39.0 Urinary tract infection, site not specified (principal); Z98.84 Bariatric surgery status; I12.9 Hypertensive chronic kidney disease with stage 1 through stage 4 chronic kidney disease, or unspecified chronic kidney disease; Z79.899 Other long term (current) drug therapy

== ENCOUNTER 2020-05-03 20:47 | Emergency (ER) | payer OTHER ==
[~2020-05-03 20:47] MED LIST changes: +CIPR-249 PO; +TRAZ-257 PO
[2020-05-03] MEDS ORDERED: LORazepam 0.5 MG TAB PO ONE (22:15)
--- NOTE | 2020-05-03 22:31 | REPVR ---
PROCEDURE INFORMATION: Exam: XR Chest, 1 View Exam date and time: 05/03/2020 10:27 PM Age: 44 years old Clinical indication: Other: Covid; Additional info: Chest pain TECHNIQUE: Imaging protocol: XR of the chest Views: 1 view. COMPARISON: [place] Chest, 1 view 05/02/2020 3:48 PM (report not provided) FINDINGS: Lungs: Unremarkable. No consolidation. Pleural space: Unremarkable. No pleural effusion. No pneumothorax. Heart/Mediastinum: The cardiomediastinal silhouette is fairly stable in appearance. Bones/joints: Unremarkable. IMPRESSION: No evidence for acute pulmonary disease or significant change since one day prior. Electronically signed by: Darron Lowery On 05/03/2020 22:30:45 PM
[2020-05-03 23:16] VITALS: O2SAT 97
[2020-05-03 23:30] LABS: BASO % 0.4 % (0.0-1.0); EOS # 0.1 10^3/uL (0.0-0.5); EOS % 1.6 % (0.0-3.0); HEMATOCRIT 45.1 % (36.0-47.0); HEMOGLOBIN 14.7 g/dl (12.0-15.5); LYMPH # 1.9 10^3/uL (1.5-5.0); LYMPH % 21.3 % (24.0-44.0); MEAN CORPUSCULAR HEMOGLOBIN 30.2 pg (27.0-33.0); MEAN CORPUSCULAR HGB CONC 32.6 g/dl (32.0-36.5); MEAN CORPUSCULAR VOLUME 92.8 fl (80.0-96.0); MONO # 0.4 10^3/uL (0.0-0.8); MONO % 3.9 % (0.0-5.0); NEUTROPHILS # 6.5 10^3/uL (1.5-8.5); NEUTROPHILS % 72.4 % (36.0-66.0); PLATELET COUNT, AUTOMATED 333 10^3/uL (150-450); RED BLOOD COUNT 4.86 10^6/uL (4.00-5.40)
[2020-05-04 00:08] LABS: ALT/SGPT 26 U/L (12-78); BILIRUBIN,DIRECT < 0.1 MG/DL (0.0-0.2); BILIRUBIN,TOTAL 0.2 MG/DL (0.2-1.0); BLOOD UREA NITROGEN 13 MG/DL (7-18); CALCIUM LEVEL 9.1 MG/DL (8.5-10.1); CARBON DIOXIDE LEVEL 21 MEQ/L (21-32); CHLORIDE LEVEL 111 MEQ/L (98-107); CK-MB VALUE MASS 1.2 NG/ML (<3.6); CPK CREATINE PHOSPHOKINASE 79 U/L (26-192); CREATININE FOR GFR 1.17 MG/DL (0.55-1.30); FREE T4 0.79 NG/DL (0.76-1.46); GLOMERULAR FILTRATION RATE 53.7 (>58); GLUCOSE, FASTING 87 MG/DL (70-100); MAGNESIUM LEVEL 1.9 MG/DL (1.8-2.4); MB/CK RELATIVE INDEX 1.52 (< OR =4); NT-PRO BNP 86 PG/ML (<125); PHOSPHORUS LEVEL 3.2 MG/DL (2.5-4.9); POTASSIUM SERUM 3.5 MEQ/L (3.5-5.1); SODIUM LEVEL 139 MEQ/L (136-145); TOTAL PROTEIN 7.8 GM/DL (6.4-8.2); TROPONIN I < 0.02 NG/ML (< 0.10)
[2020-05-04 00:33] LABS: INR 0.96; PARTIAL THROMBOPLASTIN TIME 26.1 SECONDS (25.0-38.4); PROTHROMBIN TIME 12.9 SECONDS (11.8-14.0)
[2020-05-04] MEDS ORDERED: ATIV1TAB10 PO ×2 (00:55→05:59)
[2020-05-04 01:26] VITALS: BP 154/87
--- NOTE | 2020-05-16 11:21 | ECGEPIP ---
[facility] - ED Test Date: 2020-05-03 Pat Name: IMANI DINH Department: Room: - Gender: Female Machine Tool Builder: : 1975 Requested By: GAYLE Metcalf Order Number: [id number] Reading MD: Comfort Nuñez Measurements Intervals [place] Rate: 104 P: 19 DE: 171 QRS: 26 QRSD: 77 T: 4 QT: 326 QTc: 430 Interpretive Statements SINUS TACHYCARDIA QUESTIONABLE BASELINE ARTIFACT LIMITS INTEPRETATION LOW QRS VOLTAGE IN PRECORDIAL LEADS NONSPECIFIC ST & T-WAVE ABNORMALITY ABNORMAL RHYTHM ECG SEE SCANNED DOWNTIME REPORT
== END 2020-05-04 01:29 | disposition home or self-care (01) ==
LOC: M ED 20:47
DX: F41.1 Generalized anxiety disorder (principal); R94.31 Abnormal electrocardiogram [ECG] [EKG]; I10 Essential (primary) hypertension; E78.5 Hyperlipidemia, unspecified; M54.5 Low back pain; Z98.84 Bariatric surgery status; Z79.899 Other long term (current) drug therapy

== ENCOUNTER 2021-06-08 12:02 | Emergency (ER) | payer OTHER ==
[~2021-06-08] VITALS: Ht 154.9 cm; Wt 119.5 kg
[~2021-06-08 12:02] MED LIST changes: +ATIV1TAB10 PO; +EQ M2CRE2 PV; +METH-1164; -METH1TAB40; -MICO7CR PV
[2021-06-08] MEDS ORDERED: VENL150C43 (12:09)
[2021-06-08] MEDS ORDERED: VITA1CAP25 (12:09)
[2021-06-08] MEDS ORDERED: TEMA30CA (12:09)
[2021-06-08] MEDS ORDERED: MIRE1IUD IU (12:12)
[2021-06-08] MEDS ORDERED: ISOVUE-370 76% 100ML VIAL As Ordered ONE (13:44)
[2021-06-08 14:08] LABS: BASO # 0.1 10^3/uL (0.0-0.2); BASO % 0.6 % (0.0-1.0); EOS # 0.3 10^3/uL (0.0-0.5); HEMATOCRIT 39.7 % (36.0-47.0); HEMOGLOBIN 11.7 g/dl (12.0-15.5); LYMPH # 2.2 10^3/uL (1.5-5.0); LYMPH % 25.2 % (24.0-44.0); MEAN CORPUSCULAR HEMOGLOBIN 24.6 pg (27.0-33.0); MEAN CORPUSCULAR HGB CONC 29.5 g/dl (32.0-36.5); MEAN CORPUSCULAR VOLUME 83.4 fl (80.0-96.0); MONO # 0.5 10^3/uL (0.0-0.8); MONO % 5.9 % (2.0-8.0); NEUTROPHILS # 5.7 10^3/uL (1.5-8.5); NEUTROPHILS % 64.7 % (36.0-66.0); PLATELET COUNT, AUTOMATED 435 10^3/uL (150-450); RED BLOOD COUNT 4.76 10^6/uL (4.00-5.40); WHITE BLOOD COUNT 8.8 10^3/uL (4.0-10.0)
[2021-06-08] MEDS ORDERED: NS 1,000 ML IV ONE (14:20)
[2021-06-08 14:21] LABS: ALBUMIN 3.1 GM/DL (3.2-5.2); ALT/SGPT 23 U/L (12-78); BILIRUBIN,DIRECT < 0.1 MG/DL (0.0-0.2); BILIRUBIN,TOTAL 0.2 MG/DL (0.2-1.0); TOTAL PROTEIN 6.7 GM/DL (6.4-8.2)
--- NOTE | 2021-06-08 14:23 | REP ---
INDICATION: L flank pain, recent UTI treat, still sym, concern Pyel. COMPARISON: 03/04/2020 TECHNIQUE: Axial contrast-enhanced images from the lung bases to the pubic symphysis using 100 cc Isovue 370 intravenous contrast material. Coronal and sagittal reformations obtained. This CT examination was performed using the following dose reduction techniques: Automated exposure control, adjustment of mA and/or kv according to the patient's size, and the use of iterative reconstruction technique. FINDINGS: Liver, spleen, pancreas, and bilateral adrenal glands are normal. Prior cholecystectomy. Kidneys demonstrate bilateral cortical lobulation and scarring (right greater than left) without perinephric stranding, hydroureteronephrosis, intrarenal or obstructing ureteral calculi. The enteric system is without obstruction or acute inflammatory process. Normal terminal ileum and appendix are identified in the right lower quadrant. Evidence for prior gastric bypass surgery. Pelvis demonstrates normal bladder and age-appropriate uterus/adnexa with IUD in satisfactory position. No ascites. No free air. No intraperitoneal or retroperitoneal adenopathy. Abdominal aorta and vasculature appear normal. Musculoskeletal structures are intact and without acute osseous abnormality. IMPRESSION: No acute abdominopelvic pathology appreciated. Chronic renal changes without acute process. <Electronically signed by Prince Talbert > 06/08/21 [id number]
[2021-06-08 14:53] VITALS: BP 120/77
== END 2021-06-08 14:54 | disposition home or self-care (01) ==
LOC: M ED 12:02
DX: R30.0 Dysuria (principal); R10.9 Unspecified abdominal pain; R11.2 Nausea with vomiting, unspecified; Z87.442 Personal history of urinary calculi; Z98.84 Bariatric surgery status; Z97.5 Presence of (intrauterine) contraceptive device; Z79.899 Other long term (current) drug therapy
CPT/HCPCS: 36415; 74177; 80047; 80076; 81001; 84702; 85025; 87086; 99284; Q9967

== ENCOUNTER → 2021-08-02 | Outpatient (CLI) | payer OTHER ==
[~2021-08-02] MED LIST changes: +TEMA30CA; +VENL150C43; +VITA1CAP25
== END ==
LOC: M SLEEP 20:00
PROVIDERS: ATTEND Nurse Practitioner Family
DX: G47.33 Obstructive sleep apnea (adult) (pediatric) (principal)

== ENCOUNTER 2021-09-13 21:54 | Emergency (ER) | payer OTHER ==
[~2021-09-13] VITALS: Ht 154.9 cm; Wt 122.5 kg
[2021-09-14 00:34] VITALS: BP 161/104
== END 2021-09-14 00:45 | disposition home or self-care (01) ==
LOC: M ED 21:54
DX: U07.1 COVID-19 (principal); Z79.899 Other long term (current) drug therapy

== ENCOUNTER 2021-11-13 19:50 | Emergency (ER) | payer OTHER ==
[~2021-11-13] VITALS: Ht 154.9 cm; Wt 118.2 kg
[2021-11-13 21:41] VITALS: BP 143/98
== END 2021-11-13 21:44 | disposition home or self-care (01) ==
LOC: M ED 19:50
DX: S60.211A Contusion of right wrist, initial encounter (principal); S60.221A Contusion of right hand, initial encounter; W01.0XXA Fall on same level from slipping, tripping and stumbling without subsequent striking against object, initial encounter; M54.50 Low back pain, unspecified; I10 Essential (primary) hypertension; F41.8 Other specified anxiety disorders; K21.9 Gastro-esophageal reflux disease without esophagitis; E11.9 Type 2 diabetes mellitus without complications; E78.5 Hyperlipidemia, unspecified; Z98.84 Bariatric surgery status; Z79.4 Long term (current) use of insulin; Y92.009 Unspecified place in unspecified non-institutional (private) residence as the place of occurrence of the external cause; Y93.9 Activity, unspecified; Y99.9 Unspecified external cause status

== ENCOUNTER → 2021-11-18 | Outpatient (CLI) | payer OTHER | LOC: M SLEEP 20:00 | PROVIDERS: ATTEND Physician Assistant | DX: G47.33 Obstructive sleep apnea (adult) (pediatric) (principal) ==

== ENCOUNTER 2021-11-25 13:44 | Emergency (ER) | payer OTHER ==
[~2021-11-25] VITALS: Ht 154.9 cm; Wt 120.7 kg
[2021-11-25] MEDS ORDERED: BELS1TAB4 PO (13:49)
[2021-11-25] MEDS ORDERED: BACT800T5 PO (17:30)
[2021-11-25] MEDS ORDERED: METH-1164 PO (17:31)
[2021-11-25 17:52] VITALS: BP 142/91
== END 2021-11-25 18:00 | disposition home or self-care (01) ==
LOC: M ED 13:44
DX: N39.0 Urinary tract infection, site not specified (principal); M54.50 Low back pain, unspecified; K21.9 Gastro-esophageal reflux disease without esophagitis; F41.8 Other specified anxiety disorders; Z98.84 Bariatric surgery status; Z96.82 Presence of neurostimulator; Z79.1 Long term (current) use of non-steroidal anti-inflammatories (NSAID); Z79.899 Other long term (current) drug therapy

== ENCOUNTER 2022-01-22 08:56 | Emergency (ER) | payer OTHER ==
[~2022-01-22] VITALS: Ht 154.9 cm; Wt 119.1 kg
[2022-01-22 08:56] VITALS: BP 136/85
[~2022-01-22 08:56] MED LIST changes: +BELS1TAB4 PO; +METH-1164 PO
[2022-01-22 12:39] LABS: BASO % 0.5 % (0.0-1.0); EOS # 0.2 10^3/uL (0.0-0.5); EOS % 2.9 % (0.0-3.0); HEMATOCRIT 35.7 % (36.0-47.0); HEMOGLOBIN 10.8 g/dl (12.0-15.5); LYMPH # 1.7 10^3/uL (1.5-5.0); LYMPH % 26.5 % (24.0-44.0); MEAN CORPUSCULAR HEMOGLOBIN 26.3 pg (27.0-33.0); MEAN CORPUSCULAR HGB CONC 30.3 g/dl (32.0-36.5); MEAN CORPUSCULAR VOLUME 86.9 fl (80.0-96.0); MONO # 0.4 10^3/uL (0.0-0.8); MONO % 6.5 % (2.0-8.0); NEUTROPHILS # 4.1 10^3/uL (1.5-8.5); NEUTROPHILS % 63.1 % (36.0-66.0); PLATELET COUNT, AUTOMATED 394 10^3/uL (150-450); RED BLOOD COUNT 4.11 10^6/uL (4.00-5.40); WHITE BLOOD COUNT 6.5 10^3/uL (4.0-10.0)
[2022-01-22 13:05] LABS: PROTHROMBIN TIME 13.6 SECONDS (12.7-14.5)
[2022-01-22 13:06] LABS: PARTIAL THROMBOPLASTIN TIME 28.7 SECONDS (25.9-37.0)
[2022-01-22 13:08] LABS: D-DIMER QUANT 298.46 ng/ml (<500); ERYTHROCYTE SEDIMENTATION RATE 37 mm/hr (0-20)
[2022-01-22 13:16] LABS: ALT/SGPT 30 U/L (12-78); BILIRUBIN,DIRECT < 0.1 MG/DL (0.0-0.2); BILIRUBIN,TOTAL 0.2 MG/DL (0.2-1.0); BLOOD UREA NITROGEN 10 MG/DL (7-18); C REACTIVE PROTEIN QUANTITATIV 2.45 MG/DL (0.00-0.30); CALCIUM LEVEL 8.6 MG/DL (8.5-10.1); CARBON DIOXIDE LEVEL 26 MEQ/L (21-32); CHLORIDE LEVEL 109 MEQ/L (98-107); CREATININE FOR GFR 0.82 MG/DL (0.55-1.30); FREE T4 0.78 NG/DL (0.76-1.46); GLOMERULAR FILTRATION RATE > 60.0 (>58); GLUCOSE, FASTING 100 MG/DL (70-100); LIPASE 147 U/L (73-393); NT-PRO BNP 60 PG/ML (<125); POTASSIUM SERUM 4.1 MEQ/L (3.5-5.1); SODIUM LEVEL 140 MEQ/L (136-145); TOTAL PROTEIN 6.6 GM/DL (6.4-8.2)
[2022-01-22] MEDS ORDERED: PRED20TA PO (13:45)
== END 2022-01-22 14:04 | disposition home or self-care (01) ==
LOC: M ED 08:56
DX: M94.0 Chondrocostal junction syndrome [Tietze] (principal); R94.31 Abnormal electrocardiogram [ECG] [EKG]; M54.50 Low back pain, unspecified; I10 Essential (primary) hypertension; E78.5 Hyperlipidemia, unspecified; F41.9 Anxiety disorder, unspecified; Z98.84 Bariatric surgery status; K21.9 Gastro-esophageal reflux disease without esophagitis